=== PATIENT | male | born 1970 | race Caucasian/White ===

== ENCOUNTER 2016-08-23 10:45 | Inpatient (IN) | payer OTHER ==
[~2016-08-23] VITALS: Ht 175.3 cm; Wt 72.6 kg
--- NOTE | 2016-08-23 11:02 | NUR ---
PT SENT TO ED FOR ABNORMAL LABS. PT WENT TO [facility] [place] FOR PRE-OP CHECKUP AND LABS. PT HAD LABS DRAWN ON SAT AT [facility], PT WAS FOUND TO HAVE A POTASSIUM OF 6.5, GFR OF 8, AND AN EKG WITH PEAKED T'S, PER PA AT [facility]. PT WAS SCHEDULED FOR SURGERY ON 08/24 TO REPAIR HIS BROKEN ANKLE. PT HAS NO COMPLAINTS, NO C/P, DIFF BREATHING.
--- NOTE | 2016-08-23 11:28 | NUR ---
TRIAGE NOTE ACKNOWLEDGED AND RN CARE ASSUMED. PT BOUGHT TO ROOM # 19 AND EVALUATED BY MINNIE CAROLINA
[2016-08-23 11:47] LABS: ABSOLUTE BASOPHIL COUNT 0.1 /CUMM (0.0-0.2); ABSOLUTE EOSINOPHIL COUNT 0.1 /CUMM (0.0-0.7); ABSOLUTE GRANULOCYTE CT 4.9 /CUMM (1.4-6.5); ABSOLUTE LYMPH COUNT 1.3 /CUMM (1.2-3.4); ABSOLUTE MONOCYTE COUNT 0.4 /CUMM (0.10-0.60); EOSINOPHIL % 1.1 % (0-5); GRANULOCYTE % 73.3 % (42.2-75.2); HEMATOCRIT 21.2 % (42-52); MEAN CORPUSCULAR HGB 27.8 PG (27.0-31.0); MEAN CORPUSCULAR HGB CONC 32.9 G/DL (33.0-37.0); MEAN CORPUSCULAR VOLUME 84.5 FL (80.0-94.0); MEAN PLATELET VOLUME 7.6 FL (7.4-10.4); PLATELET COUNT 463 /CUMM (130-400); RBC DISTRIBUTION WIDTH 16.3 % (11.5-14.5); WHITE BLOOD CELL COUNT 6.7 /CUMM (4.8-10.8)
--- NOTE | 2016-08-23 12:07 | NUR ---
CRITICAL TEST RESULTS [id number] YI ROBB 46 M TESTS AND RESULTS: HGB 7.0, HCT 21.2 Results received and read back by: PRESLEY GLEZ Results received date and time: 08/23/16 1207 The following provider was notified of the results, and read the results back: MINNIE CAROLINA Notified date and time: 08/23/16 at 1206
--- NOTE | 2016-08-23 12:19 | ED GENERAL ADULT ---
History of Present Illness General Chief Complaint: General Adult Stated Complaint: SENT BY PMD FOR ABNORMAL LABS Source: patient, family Exam Limitations: no limitations Vital Signs & Intake/Output Vital Signs & Intake/Output Vital Signs Date Time Temp Pulse Resp B/P Pulse O2 O2 Flow FiO2 Ox Delivery Rate 08/23 2003 77 200/98 08/23 1920 98.2 85 20 200/98 100 Room Air 08/23 1832 198/90 08/23 1634 82 18 192/80 98 Room Air 08/23 1516 98.5 78 20 187/91 99 Room Air 08/23 1425 98.7 76 18 220/102 08/23 1419 76 18 220/102 98 Room Air 08/23 1357 98.7 78 18 225/108 02 1349 220/102 08/23 1348 98.7 78 18 225/108 100 Room Air 08/23 1320 99 Room Air 08/23 1058 98.9 79 20 209/93 100 Room Air Allergies Coded Allergies: No Known Allergies (08/23/16) Reconcile Medications No Known Home Medications Triage Note: PT SENT TO ED FOR ABNORMAL LABS. PT WENT TO [facility] IN [place] FOR PRE-OP CHECKUP AND LABS. PT HAD LABS DRAWN ON SAT AT [facility], PT WAS FOUND TO HAVE A POTASSIUM OF 6.5, GFR OF 8, AND AN EKG WITH PEAKED T'S, PER PA AT [facility]. PT WAS SCHEDULED FOR SURGERY ON 08/24 TO REPAIR HIS BROKEN ANKLE. PT HAS NO COMPLAINTS, NO C/P, DIFF BREATHING. Triage Nurses Notes Reviewed? yes Onset: Abrupt Duration: unknown duration Timing: recent history HPI: 46-year-old male that has a recent fracture in his left ankle is due to have surgery went to see his primary care doctor for a general physical and blood work which was preop and was told to come to the hospital due to abnormal values. Patient denies any symptoms. Patient denies any chest pain shortness of breath lightheaded dizziness syncopal episodes nausea vomiting fever chills. Patient has a splint in his left lower leg. Patient reports that he has not seen a doctor in many years. (HCAVA CAROLINA,MINNIE) Past History Travel History Traveled to [place] past 21 day No Medical History Any Pertinent Medical History? see below for history Cardiovascular: hypertension Tetanus Vaccine: Surgical History Surgical History: non-contributory Psychosocial History What is your primary language Jamaican Tobacco Use: Current Daily Use Daily Tobacco Use Amount/Type: => 5 Cigarettes daily ETOH Use: occasional use Illicit Drug Use: denies illicit drug use Family History Hx Contributory? No (MINNIE PURDY) Review of Systems Review of Systems Constitutional: Reports: no symptoms. EENTM: Reports: no symptoms. Respiratory: Reports: no symptoms. Cardiovascular: Reports: no symptoms. GI: Reports: no symptoms. Genitourinary: Reports: no symptoms. Musculoskeletal: Reports: see HPI. Skin: Reports: no symptoms. Neurological/Psychological: Reports: no symptoms. Hematologic/Endocrine: Reports: no symptoms. Immunologic/Allergic: Reports: no symptoms. All Other Systems: Reviewed and Negative (MINNIE PURDY) Physical Exam Physical Exam General Appearance: no apparent distress, alert, awake Head: atraumatic, normal appearance Eyes: Bilateral: normal appearance, EOMI. Ears, Nose, Throat: normal pharynx, normal ENT inspection Neck: normal inspection, full range of motion Respiratory: normal breath sounds, no respiratory distress Cardiovascular: regular rate/rhythm Back: normal inspection Extremities: splint in place of left lower extremity, no other acute findings Neurologic/Psych: awake, alert, oriented x 3 Skin: intact Core Measures ACS in differential dx? No CVA/TIA Diagnosis: No Severe Sepsis Present: No Septic Shock Present: No (MINNIE PURDY) Progress Differential Diagnoses I considered the following diagnoses in my evaluation of the patient: Renal failure, hyperkalemia, dehydration, chronic kidney disease, diabetes, hypertension, sepsis, Plan of Care: Orders Procedure Date/time Status PHOSPHORUS 08/24 0600 Active LIPID PANEL 08/24 0600 Active CBC WITHOUT DIFFERENTIAL 08/24 0600 Active BASIC ELECTROLYTES PLUS BUN&CR 08/24 0600 Active Heart Healthy Diet 08/23 D Active Vital Signs 08/23 193 Active Teach/Educate 08/23 1935 Active Nutritional Intake, Monitor 08/23 193 Active Isolation 08/23 193 Active Intake & Output 08/23 193 Active Patient Care Conference 08/23 193 Active Activity/Ambulation 08/23 1935 Active Lab Add-on Test 08/23 1551 Active TRC EVALUATION (GEN) 08/23 1524 Active OXYGEN SETUP (GEN) 08/23 1524 Active Pathway - chart 08/23 1524 Active House Staff 08/23 1524 Active Patient Data 08/23 1524 Active Code Status 08/23 1524 Active Admit to inpatient 08/23 1517 Active Vital Signs 08/23 1517 Active Code Status 08/23 1517 Complete TYPE & SCREEN (NOT X-MATCH) 08/23 1516 Complete Lab Add-on Test 08/23 1515 Active Patient Data 08/23 1456 Active URINE LYTES, SPOT 08/23 1415 Complete GLYCOSYLATED HGB 08/23 1141 Active Telemetry/Junior Net Developer 08/23 1133 Active URINALYSIS 08/23 1132 Complete PHOSPHORUS 08/23 1132 Complete MAGNESIUM 08/23 1132 Complete COMPREHENSIVE METABOLIC PANEL 08/23 1132 Complete CBC WITHOUT DIFFERENTIAL 08/23 1132 Complete EKG 08/23 1054 Active VTE Mechanical Prophylaxis 08/23 UNK Active Vital Signs 08/23 UNK Complete MISTAKE 08/23 UNK Active Telemetry/Junior Net Developer 08/23 UNK Active Intake & Output 08/23 UNK Active Hemoccult 08/23 UNK Active ECHOCARDIOGRAM 08/23 UNK Active Laboratory Tests 08/23/16 1415: Urinalysis LIGHT H, Urine Color YEL, Urine Clarity CLEAR, Urine pH 7.0, Ur Specific [place] 1.020, Urine Protein >=300 H, Urine Ketones NEG, Urine Nitrite NEG, Urine Bilirubin NEG, Urine Urobilinogen 0.2, Ur Leukocyte Esterase NEG, Ur Microscopic SEDIMENT EXAMINED, Urine RBC 1-3, Urine WBC 3-5 H, Urine Mucus RARE , Urine Hemoglobin SMALL H, Urine Glucose 100 H 08/23/16 1415: Ur Random Creatinine 46.1, Ur Random Sodium 91 H, Ur Random Potassium 33.7, Fraction Sodium Excret 9.5 H 08/23/16 1141: Hemoglobin A1c Pending 08/23/16 1141: Anion Gap 11, Estimated GFR 9 L, BUN/Creatinine Ratio 7.4, Glucose 88, Calcium 8.5, Phosphorus 6.5 H, Magnesium 2.0, Total Bilirubin 0.5, AST 18, ALT 23, Alkaline Phosphatase 88, Total Protein 6.7, Albumin 3.4 L, Globulin 3.3, Albumin/Globulin Ratio 1.0 L, CBC w Diff NO MAN DIFF REQ, RBC 2.50 L, MCV 84.5 , MCH 27.8, RDW 16.3 H, MPV 7.6, Gran % 73.3, Lymphocytes % 19.1 L, Monocytes % 5.5, Eosinophils % 1.1, Basophils % 1.0, Absolute Granulocytes 4.9, Absolute Lymphocytes 1.3, Absolute Monocytes 0.4, Absolute Eosinophils 0.1, Absolute Basophils 0.1, PUBS MCHC 32.9 L 08/23/16 1000: Ur Random Creatinine 50.3, U Random Total Protein 312.1 H, Protein/Creatinin Ratio 6.20 H Diagnostic Imaging: Viewed by Me: Ultrasound. Discussed w/RAD: Ultrasound. Radiology Impression: SERVICE DATE: 08/23/16-1231 EXAM TYPE: US - US-RENAL/ KIDNEY EXAMINATION: US RETROPERITONEAL COMPLETE (RENAL) CLINICAL INFORMATION: Renal failure. COMPARISON: None TECHNIQUE: Real-time imaging of the kidneys and bladder. FINDINGS: RIGHT KIDNEY: 12.3 x 6.1 x 5.6 cm (SAG x AP x TRV). Mildly increased cortical echogenicity. Renal cortical thickness is normal. No calculi or focal parenchymal lesions. No hydronephrosis. LEFT KIDNEY: 10.7 x 5.8 x 5.3 cm (SAG x AP x TRV). Increased cortical echogenicity. Mild cortical thinning. No evidence of stones or hydronephrosis. Hypoechoic cortical cyst mid left kidney measuring 1 x 0.7 cm. BLADDER: Well-distended and normal. Only right-sided ureteric jet identified during sonographic evaluation.. IMPRESSION: 1. Increased bilateral renal echogenicity compatible with underlying medical renal disease. 2. No evidence of stones or hydronephrosis. 3. Left renal cyst. Initial ED EKG: normal intervals, normal p-waves, normal sinus rhythm, rate (71) , nonspecific ST T wave chg, no hyperacute T waves (MINNIE PURDY) Departure Departure Disposition: STILL A PATIENT Condition: Stable Clinical Impression Primary Impression: Acute renal failure Secondary Impressions: Anemia, Hypertension Referrals: OMAR PLATA,NED (PCP/Family) Departure Forms: Customer Survey General Discharge Information Prescriptions: Current Visit Scripts No Known Home Medications Admission Note Spoke With: INDIRA ROMAN MD Documentation of Exam: Documentation of any treatments & extenuating circumstances including Concerns Regarding Discharge (functional status, medication knowledge or non-compliance, living conditions, etc.) that warrant an admission rather than observation: Patient will require renal consult. IV fluids. Blood pressure management. Repeat blood work. High risk. Patient would do poorly as an outpatient. Further evaluation for anemia. (MINNIE PURDY) Admission Note Documentation of Exam: Documentation of any treatments & extenuating circumstances including Concerns Regarding Discharge (functional status, medication knowledge or non-compliance, living conditions, etc.) that warrant an admission rather than observation: PA/COMBAT RIFLE CREWMEMBER Co-Sign Statement Statement: ED Attending supervision documentation- [x I saw and evaluated the patient. I have also reviewed all the pertinent lab results and diagnostic results. I agree with the findings and the plan of care as documented in the PA's/COMBAT RIFLE CREWMEMBER's documentation. [] I have reviewed the ED Record and agree with the PA's/COMBAT RIFLE CREWMEMBER's documentation. [] Additions or exceptions (if any) to the PAs/COMBAT RIFLE CREWMEMBER's note and plan are summarized below: [] I've seen and personally examined the patient and I agree with the PAs evaluation. The patient was found to have significant azotemia and elevated creatinine on routine physical exam. His blood pressure was substantially elevated. He is asymptomatic in the ED. He was admitted to the hospital for nephrology consult and further care. IV antihypertensive blood pressure reduction. (YI HOLLY DO) Critical Care Note Critical Care Note Critical Care Time: non-applicable (MINNIE PURDY)
--- NOTE | 2016-08-23 13:19 | NUR ---
pt sent to u/s
--- NOTE | 2016-08-23 14:05 | NUR ---
PT BACK FROM U/S. PT MEDICATED WITH 5 MG HYDRALAZINE IV FOR ELEVATED B/P.
--- NOTE | 2016-08-23 14:27 | NUR ---
B/P 220/102. PA NOTIFIED. PT MEDICATED WITH 10 MG HYDRALAZINE IV FOR ELEVATED B/P
--- NOTE | 2016-08-23 14:40 | ULTRASOUND REPORT ---
EXAMINATION: US RETROPERITONEAL COMPLETE (RENAL) CLINICAL INFORMATION: Renal failure. COMPARISON: None TECHNIQUE: Real-time imaging of the kidneys and bladder. FINDINGS: RIGHT KIDNEY: 12.3 x 6.1 x 5.6 cm (SAG x AP x TRV). Mildly increased cortical echogenicity. Renal cortical thickness is normal. No calculi or focal parenchymal lesions. No hydronephrosis. LEFT KIDNEY: 10.7 x 5.8 x 5.3 cm (SAG x AP x TRV). Increased cortical echogenicity. Mild cortical thinning. No evidence of stones or hydronephrosis. Hypoechoic cortical cyst mid left kidney measuring 1 x 0.7 cm. BLADDER: Well-distended and normal. Only right-sided ureteric jet identified during sonographic evaluation.. IMPRESSION: 1. Increased bilateral renal echogenicity compatible with underlying medical renal disease. 2. No evidence of stones or hydronephrosis. 3. Left renal cyst.
--- NOTE | 2016-08-23 15:05 | History & Physical ---
BENNETT PLATAEMRE 08/23/16 1505: General Information and HPI MD Statement: I have seen and personally examined YI ROBB and documented this H&P. The patient is a 46 year old M who presented with a patient stated chief complaint of [abnormal labs]. Source of Information: patient, family Exam Limitations: no limitations History of Present Illness: 46-year-old male with PMH of HTN was sent in for K6.5 and GFR8 with peaked T waves on EKG found on pre-op lab. Pt broke his left tibia and fibula when he slipped on the snow last . He got his blood work and EKG done on tuesday and tuesday, and was told today to come to the ED for abnormal lab findings. Pt reports that he has had hypertension for over 3 years, but has not been on medications, because he could not afford a doctor's visit. 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 When he was laid off from his previous job, he lost his insurance, and was told that he has to make an office visit prior to having his prescriptions renewed. Although he could afford his meds, he could not afford the office visits. He has not been checking his BP. ROS negative, except for pain on his left lower extremity due to the fall. He reported slipping on the ice, onto his ankle and back. Denies back pain. SH: Pt is an electrical wirer. Smokes [id number] years, refuses nicotine patch at this time. Ocassional alcohol (weekly), denies drugs. Allergies/Medications Allergies: Coded Allergies: No Known Allergies (08/23/16) Home Med list No Known Home Medications Past History Travel History Traveled to [place] past 21 day No Medical History Cardiovascular: hypertension Tetanus Vaccine: Surgical History Surgical History: non-contributory Past Family/Social History Psychosocial History Where do you live? Home Who Do You Live With? spouse Primary Language: Paraguayan Smoking Status: Current Everyday Smoker ([id number] years) ETOH Use: occasional use Illicit Drug Use: denies illicit drug use Functional Ability ADLs Independent: dressing, eating, toileting, bathing. Ambulation: independent IADLs Independent: shopping, housework, finances, food prep, telephone, transportation , medication admin. Employment History Employment Employed (electrical wirer) Review of Systems Review of Systems Constitutional: Reports: chills. Denies: fever. EENTM: Denies: visual changes. Cardiovascular: Denies: chest pain, palpitations. Respiratory: Denies: cough, short of breath. GI: Denies: abdominal pain, bloating, constipation, diarrhea. Genitourinary: Denies: dysuria. Exam & Diagnostic Data Last 24 Hrs of Vital Signs/I&O Vital Signs Date Time Temp Pulse Resp B/P Pulse O2 O2 Flow FiO2 Ox Delivery Rate 08/23 1634 82 18 192/80 98 Room Air 08/23 1516 98.5 78 20 187/91 99 Room Air 08/23 1425 98.7 76 18 220/102 08/23 1419 76 18 220/102 98 Room Air 08/23 1357 98.7 78 18 225/108 08/23 1349 220/102 08/23 1348 98.7 78 18 225/108 100 Room Air 08/23 1320 99 Room Air 08/23 1058 98.9 79 20 209/93 100 Room Air Intake & Output 08/23 1600 08/23 0800 08/23 0000 Intake Total 1000 Output Total Balance 1000 Intake, IV 1000 Patient 72.575 kg Weight Physical Exam General Appearance Alert, Oriented X3, Cooperative, No Acute Distress Skin left lower extremity wrapped HEENT Atraumatic, PERRLA, EOMI Neck Supple, +2 Carotid Pulse wo Bruit Lymphatic Axillary nl, Cervical nl Cardiovascular Regular Rate, Normal S1, Normal S2, No Murmurs, Gallops, Rubs Lungs Clear to Auscultation, Normal Air Movement Abdomen Normal Bowel Sounds, Soft, No Tenderness Neurological Normal Speech Extremities 2+ pitting edema bilaterally Diagnostic Data Other Results Renal US: 1. Increased bilateral renal echogenicity compatible with underlying medical renal disease. 2. No evidence of stones or hydronephrosis. 3. Left renal cyst. Assessment/Plan Assessment: 46-year-old male with PMH of HTN was sent in for K6.5 and GFR8 with peaked T waves on EKG found on pre-op lab. On admission, his labs were grossly abnormal with BUN/Cr of 51/6.9 (November 2010 was 19/1), H/H of 7/21.2 (November 2010 was 16.5/47.7 ). BP in the ED was up to 225/108, which improved to 187/91, a total of 15 mg IV hydralazine. Pt admitted to tele with the following problems addressed: # Acute renal failure # Hypertensive urgency # Left tibia and fibula fracture # Acute renal failure with anemia Renal US: Increased bilateral renal echogenicity compatible with underlying medical renal disease. - Urine cr 46.1 - Urine protein > 300 * Follow BEP, Phos * Follow spot urine creatinine * Nephrology consult placed * Follow H/H, goal hg > 7. Transfuse if < 7 * Guaiac all stool, iron studies * Follow lipid panel, hba1c # Hypertensive urgency - Goal BP < 190 for now * Start metoprolol 25 mg bid in the am # Left tibia and fibula fracture * Pain control with oxycodone * F/U with ortho at [facility] # Nicotine dependence * Counselled on cessation * Refused nicotine patch at this time Diet: Heart healthy DVT ppx: mech (no pharm due to anemia) FULL CODE As Ranked By This Provider Problem List: 1. Acute renal failure 2. Hypertension 3. Anemia Core Measures/Miscellaneous Acute Coronary Syndrome ACS Diagnosis: No Cerebrovascular Accident CVA/TIA Diagnosis: No Congestive Heart Failure CHF Diagnosis: No Venous Thromboembolism VTE Risk Factors: Acute medical illness, Age > 40 VTE Prophylaxis Ordered Inpt: Mechanical (ALPS/TEDS) No Mech VTE prophylaxis d/t: No contraindications No VTE Pharm Prophylaxis d/t: Active bleeding VTE Diagnosis: No VTE Type: NONE VTE Confirmed by (Test): NONE Severe Sepsis Severe Sepsis Present: No Septic Shock Septic Shock Present: No Miscellaneous Documentation Attending Case Discussed With: GAYLE FREIRE M.D Primary Care Physician: OMAR PLATA,UJJWAL Patient sees these Specialists None Level of Patient Care: Telemetry MARY SHERWOOD 08/23/16 1508: Resident Review Statement Resident Statement: examined this patient, discussed with grad intern, agreed with grad intern, discussed with family, reviewed EMR data (avail), discussed with nursing , reviewed images Other Findings: This is a 46 YO M W/O significant PMH(did not follow up with any doctor for years) was sent to the ED from clinic for abnormal labs. He is s/p Left tibia/ fibula Fx and was there for pre-op evaluation. Pt reports no specific complaint except pain in LE and occasional LE edema which has been worsening for the past few months. Please see above for more details. VS: BP 225/108 otherwise stable. Ph/Ex: AAO x3, NAD, HEENT: NCAT, PERRLA, EOMI, NL Fundoscopy, Neck: supple, no JVD, or carotid bruits. No LAD. CV: RRR no murmur, Lungs: CTABL, Abd: NL BS, Soft, NT, ND. Neurology: CN 3-12 intact, sensation intact. Ext: Pulse intact, LLE dressing intact, LE edema b/l Labs and Dx Data reviewed: Problem list: * VIKRAM: Cr: 6.9, GFR: 9 (Last available data: November 2010: Cr 1, GFR NL): FENA 9.5%, nephritic range of proteinuria. Obstructive uropathy was r/o w/renal US. DDX: ATN/AIN vs CKD * Hypertensive emergency: BP 225/108 w/ end-organ damage(VIKRAM) * Left renal cyst * Left tibia and fibula Fx * Pre-DM * Hyper phos Plan: * Tele monitor * Vitals q shift * Orthostatics * Hemoccult * TSH, Iron studies, lipid panel * Nephro consult * Monitor H&H * type&screen transfuse if Hb<7 * BP improved to 180/90 after receiving IV hydralazine in the ED * Would not decrease BP more than 20-30 sys within 24 hrs therefore would start antihypertensives(preference with BBs) from tomorrow unless sys BP rises above 190. * Nephro consult * Adequate pain management as it can contribute to elevated BP. * Life style mod/nutrition counseling for pre DM. * DVT PPX * FC MOUNA PLATA,[facility] 08/23/16 1557: Attending MD Review Statement Attending Statement Attending MD Statement: examined this patient, discuss w/resident/PA/CORE MANAGER, agreed w/resident/PA/CORE MANAGER, discussed with family, reviewed EMR data (avail), discussed with nursing, amended to note Attending Assessment/Plan: Patient is a 38-year-old male with history of hypertension. He has not seen a primary care provider in several years. He stopped taking antihypertensive medications a few years ago when his primary care provider refused to fill medications without a formal office visit. He sustained a left tibia-fibula fracture. He to go following a mechanical fall while in [place]. Temporary mobilizer was placed and he has since followed up with an orthopedic service and is due for surgical intervention. He was referred to the ER when preop blood work showed evidence of renal disease and hyperkalemia. Patient offers no complaints. Denies dyspnea, cough, poor exercise tolerance, chest pain or palpitations. On examination he is not in any acute distress. He has mild conjunctival pallor. He has no uvular venous distention. Heart sounds are regular with no added sounds. Lungs are clear to auscultation bilaterally. Abdomen is soft and nondistended. Left leg is immobilized in a cast. Right leg has 2+ pitting pedal edema. Patient reports that this is chronic. Problems: 1. Hypertensive crisis 2. Renal failure; unknown chronicity. 3. Anemia 4. Left tibia-fibula fracture. Recommendations: -Admit to the inpatient service for further management. -Patient's paucity of symptoms are suggested that his renal dysfunction, anemia and uncontrolled hypertension chronic. -Blood pressure has improved with administration of hydralazine 15 mg in the emergency room. Begin patient on metoprolol 25 mg orally twice daily. We'll titrate and Giuliano on antihypertensives as needed. We will tolerate blood pressure of less than 190 systolic in the next 24-48 hours. -He has significant proteinuria on spot urine analysis. Recommend obtaining urine protein/creatinine level. His random glucose level is not suggestive of diabetes making diabetic nephropathy less likely on the differentials. He may require renal biopsy for definitive diagnosis.. Monitor input output closely and follow-up with the nephrology service. His potassium level is currently within normal limits and he is not significantly acidotic. -Check stool guaiac and iron profile. His anemia may be secondary to chronic kidney disease. Repeat H&H. Hold off transfusion as patient is currently not symptomatic. Transfuse to keep hemoglobin level greater than 7 and hematocrit greater than 21 -Continue leg immobilization. Patient will follow-up with his orthopedic service as an outpatient for surgical intervention. -Check stool guaiac before beginning DVT prophylaxis with subcutaneous heparin. -Patient will be monitored on the telemetry service for the next 24 hours as he may require intravenous medications for blood pressure control. Once blood pressure is consistently below 190 systolic he may be transferred to the general medical service.
--- NOTE | 2016-08-23 15:43 | NUR ---
PT ADMITTED TO ROOM 174-2
--- NOTE | 2016-08-23 18:00 | NUR ---
DINNER TRAY ORDERED.
--- NOTE | 2016-08-23 18:44 | NUR ---
PT ADMITTED TO ROOM # 174-2. ORAL REPORT GIVEN TO SHAWN MEZA ALL V.S.S. B/P 198/90 MANUALLY. MOD CALLED AND NOTIFIED. NO ORDERS RECEIVED. RESIDENT DOES NOT WANT TO GIVE ANY MEDS FOR B/P AT THIS TIME. METOPROLOL 25 MG ORDERED BID. PT READY FOR TRANSFER
--- NOTE | 2016-08-23 19:05 | NUR ---
PT MEDICATED WITH 5 MG OXYCODONE PO FOR 7/10 LEFT FOOT PAIN DISTRIBUTION CALLED TO TRANSFER PT
[2016-08-23 19:20] VITALS: BP 200/98
[2016-08-23 21:45] VITALS: BP 180/88
--- NOTE | 2016-08-23 21:50 | NUR ---
MD TORO PERFORMED DIGITAL GUIAC EXAM AND RESULT WAS NEGATIVE.
[2016-08-23 22:54] LABS: ABSOLUTE BASOPHIL COUNT 0.1 /CUMM (0.0-0.2); ABSOLUTE EOSINOPHIL COUNT 0.1 /CUMM (0.0-0.7); ABSOLUTE GRANULOCYTE CT 4.9 /CUMM (1.4-6.5); ABSOLUTE LYMPH COUNT 1.2 /CUMM (1.2-3.4); ABSOLUTE MONOCYTE COUNT 0.3 /CUMM (0.10-0.60); MEAN CORPUSCULAR VOLUME 85.3 FL (80.0-94.0); MEAN PLATELET VOLUME 8.1 FL (7.4-10.4)
[2016-08-23 22:56] LABS: BASOPHIL % 0.8 % (0.0-2.0); EOSINOPHIL % 0.8 % (0-5); GRANULOCYTE % 74.6 % (42.2-75.2); MEAN CORPUSCULAR HGB CONC 32.8 G/DL (33.0-37.0); PLATELET COUNT 391 /CUMM (130-400); RED BLOOD CELL CT 2.29 /CUMM (4.70-6.10); WHITE BLOOD CELL COUNT 6.6 /CUMM (4.8-10.8)
[2016-08-23 22:59] LABS: HEMATOCRIT 19.6 % (42-52)
[2016-08-24 00:30] VITALS: BP 162/80
[2016-08-24 03:59] VITALS: BP 180/80
--- NOTE | 2016-08-24 06:34 | PN- Housestaff ---
BENNETT PLATA,EMRE 08/24/16 0633: Subjective Follow-up For: hypertensive urgency renal failure ankle fracture Tele-Events Since Last Visit: SR 60-64 no events Subjective: Pt was seen and examined this morning. Reported not getting much sleep due to repeat bloodworks/vitals/ekg. Other than that, no complains. BP continues to be high, although improved, with range 162-200 / 80-92. We have added lasix 80 po daily and amlodipine 5 mg daily. We will get ortho consult. Nephro recommends doing the surgical repair while he is inpatient so that we can closely monitor him post - op. Review of Systems Constitutional: Denies: chills, fever. EENTM: Denies: visual changes. Cardiovascular: Denies: chest pain. Respiratory: Denies: cough, short of breath. Gastrointestinal: Denies: abdominal pain. Objective Last 24 Hrs of Vital Signs/I&O Vital Signs Date Time Temp Pulse Resp B/P Pulse O2 O2 Flow FiO2 Ox Delivery Rate 08/24 1318 180/78 08/24 0849 192/82 08/24 0833 99.3 63 16 191/92 98 Room Air 08/24 0359 67 180/80 08/24 0317 61 200/90 08/24 0030 97.7 63 20 162/80 97 Room Air 08/23 2200 99 Room Air 08/23 2145 69 180/88 08/23 2004 77 200/98 08/23 1920 98.2 85 20 200/98 100 Room Air 08/23 1832 198/90 08/23 1634 82 18 192/80 98 Room Air 08/23 1516 98.5 78 20 187/91 99 Room Air 08/23 1425 98.7 76 18 220/102 08/23 1419 76 18 220/102 98 Room Air Intake & Output 08/24 1600 08/24 0800 08/24 0000 Intake Total 750 300 Output Total 450 300 Balance 300 0 Intake, Blood 350 Product Intake, Oral 400 300 Output, Urine 450 300 Patient 72.575 kg Weight Physical Exam General Appearance: Alert, Oriented X3, Cooperative, No Acute Distress Skin: No Significant Lesion HEENT: Atraumatic Cardiovascular: Regular Rate, Normal S1, Normal S2, No Murmurs, Gallops, Rubs Lungs: Clear to Auscultation, Normal Air Movement Abdomen: Normal Bowel Sounds, Soft, No Tenderness Neurological: Normal Speech Extremities: bilateral pitting edema Current Medications: Current Medications Sig/Alban Start time Last Medication Dose Route Stop Time Status Admin Amlodipine Besylate 5 MG DAILY 08/24 1115 AC 08/24 PO 1318 Furosemide 80 MG DAILY 08/24 1110 AC 08/24 PO 1319 Hydralazine HCl 10 MG ONCE ONE 08/23 1415 DC 08/23 IV 08/23 1416 1425 Labetalol HCl 5 MG ONCE ONE 08/24 0315 DC 08/24 IV 08/24 0316 0317 Metoprolol Tartrate 25 MG BID 08/23 2200 08/24 PO 0849 Oxycodone HCl 0 .STK-MED ONE 08/23 1901 DC PO Oxycodone HCl 5 MG Q6P PRN 08/23 1715 AC 08/24 PO 0851 Patient Medication 1 ED .STK-MED ONE 08/24 1413 DC Teaching ED 08/24 1414 Sodium Chloride 1,000 ML ONCE ONE 08/23 1245 DC 08/23 IV 08/23 1924 1425 Last 24 Hrs of Lab/Quinn Results Last 24 Hrs of Labs/Mics: Laboratory Tests 08/24/16 0555: Anion Gap 10, Estimated GFR 9 L, BUN/Creatinine Ratio 6.8 L, Phosphorus 6.5 H , Triglycerides 137, Cholesterol 155, LDL Cholesterol, Calc 98, HDL Cholesterol 30 L, Cholesterol/HDL Ratio 5 H, CBC w Diff NO MAN DIFF REQ, RBC 2.58 L, MCV 85.4, MCH 28.8, RDW 15.5 H, MPV 8.5, Gran % 69.6, Lymphocytes % 23.4, Monocytes % 4.6, Eosinophils % 1.2, Basophils % 1.2, Absolute Granulocytes 4.0, Absolute Lymphocytes 1.3, Absolute Monocytes 0.3, Absolute Eosinophils 0.1, Absolute Basophils 0.1, PUBS MCHC 33.8 08/24/16 0115: Estimated GFR 9 L, Iron 22 L, TIBC 288, Ferritin 31.3, Troponin I 0.78 *H, 25- OH Vitamin D Total 8.0 L, Hepatitis A IgM Ab NONREACTIVE, Hep Bs Antigen NONREACTIVE, Hep B Core IgM Ab Conf NONREACTIVE, Hepatitis C Antibody NONREACTIVE 08/24/16 0014: SHAWN Titer Pending, Anti-Nuclear Antibody Pending 08/23/162207: CBC w Diff NO MAN DIFF REQ, RBC 2.29 L, MCV 85.3, MCH 28.0, RDW 16.0 H, MPV 8.1, Gran % 74.6, Lymphocytes % 18.7 L, Monocytes % 5.1, Eosinophils % 0.8, Basophils % 0.8, Absolute Granulocytes 4.9, Absolute Lymphocytes 1.2, Absolute Monocytes 0.3, Absolute Eosinophils 0.1, Absolute Basophils 0.1, PUBS MCHC 32.8 L Assessment/Plan Assessment: 46-year-old male with PMH of HTN was sent in for K6.5 and GFR8 with peaked T waves on EKG found on pre-op lab. On admission, his labs were grossly abnormal with BUN/Cr of 51/6.9 (November 2010 was 19/1), H/H of 7/21.2 (November 2010 was 16.5/47.7 ). BP in the ED was up to 225/108, which improved to 187/91, a total of 15 mg IV hydralazine. Pt admitted to [facility] with the following problems addressed: # Acute renal failure # Anemia # Hypertensive urgency # Positive troponin # Left tibia and fibula fracture # Acute renal failure Renal US: Increased bilateral renal echogenicity compatible with underlying medical renal disease. - BUN/Cr: 51/6.9 - Urine cr 46.1 - Fena 9.5% - Urine protein > 300 - Phos 6.5 - Bilateral pitting edema * Follow BEP, Phos * Nephrology consult placed * Follow lipid panel, hba1c * Follow SIEP, Serum free light chains, SHAWN, C3, C4, ANCA, * Hep B & C serologies negative * Lasix 80 mg po qday * LE doppler to r/o Dvt * OP f/u with GFP # Anemia - Stool guaiac done and was negative - Hg 7.0 --> 6.4 --> Received 1 unit PRBC --> hg 7.4 * Monitor CBC. goal hg > 7. Transfuse if < 7 * Guaiac all stool, iron studies # Hypertensive urgency - Goal BP < 190 for now * Start metoprolol 25 mg bid, amlodipine 10 mg daily # Positive troponin most likely demand ischemia from hypertension vs renal failure - Echo Aug 2016: Moderate to marked concentric left ventricular hypertrophy. Normal left ventricular ejection fraction visually estimated at >65. Normal left ventricular diastolic filling pattern for age. Mild to moderate left atrial dilatation. Mild thickening/calcification of the mitral valve leaflets. Mild mitral annular calcification. Trace mitral regurgitation. Focal thickening of the aortic valve cusps. No aortic stenosis. Pulmonary artery systolic pressure is elevated at 45-50 mm Hg. Dilated IVC. * Cardiology consulted: Dr. Quan * Trop 1.03 --. 0.78 # Left tibia and fibula fracture * Pain control with oxycodone (can inc oxycodone to 10 mg if pain not well controlled) * Ortho consulted: nephro recc doing surgery while he is inpatient so that we can monitor him closely postoop * Follow ankle xray # Nicotine dependence * Counselled on cessation * Refused nicotine patch at this time Diet: Heart healthy : 2 gram Na & K diet DVT ppx: mech (no pharm due to anemia) FULL CODE Problem List: 1. Hypertensive urgency 2. Renal failure 3. Elevated troponin 4. Anemia 5. Ankle fracture Pain Ratin Pain Location: ankle Pain Goal: Remain pain free Pain Plan: oxycodone Tomorrow's Labs & Rationales: bep , mg, phos for renal failure cbc for anemia DVT/Prophylaxis: mechanical MOUNA PLATA,GAYLE 08/24/16 1602: Attending MD Review Statement Attending Statement Attending MD Statement: examined this patient, discuss w/resident/PA/OUTDOOR GUIDE, agreed w/resident/PA/OUTDOOR GUIDE, reviewed EMR data (avail), discussed with nursing, discussed with case mgmt, amended to note Attending Assessment/Plan: Patient seen and examined. Resting comfortably not in acute distress. Blood pressure is better controlled but still elevated. Denies chest pain or shortness of breath. Denies palpitations. Troponins were noted to be yesterday but are currently trending downwards. Recommendations: -Administer another dose of amlodipine 5 mg orally this afternoon. Increase dose of amlodipine to 10 mg daily. Continue metoprolol at current dose and diuretic therapy as recommended by the nephrology service. -Serologic workup as recommended by the nephrology service has been ordered. Will follow-up results. -Please refer patient to outpatient primary care practice at [facility]. -orthopedic evaluation appreciated. Patient will continue care as an outpatient with his private orthopedic surgeons. -Echocardiogram shows normal ejection fraction, dilated inferior vena cava and elevated pulmonary pressures. He is not short of breath. He is not hypoxic. -Obtain Dopplers of lower extremity to rule out DVT in view of his lower extremity swelling. Swelling may be due to protein loss from his nephrotic syndrome.
[2016-08-24 07:49] LABS: ABSOLUTE BASOPHIL COUNT 0.1 /CUMM (0.0-0.2); ABSOLUTE EOSINOPHIL COUNT 0.1 /CUMM (0.0-0.7); ABSOLUTE LYMPH COUNT 1.3 /CUMM (1.2-3.4); ABSOLUTE MONOCYTE COUNT 0.3 /CUMM (0.10-0.60); BASOPHIL % 1.2 % (0.0-2.0); EOSINOPHIL % 1.2 % (0-5); GRANULOCYTE % 69.6 % (42.2-75.2); HEMATOCRIT 22.1 % (42-52); MEAN CORPUSCULAR HGB 28.8 PG (27.0-31.0); MEAN CORPUSCULAR HGB CONC 33.8 G/DL (33.0-37.0); MEAN CORPUSCULAR VOLUME 85.4 FL (80.0-94.0); MEAN PLATELET VOLUME 8.5 FL (7.4-10.4); PLATELET COUNT 372 /CUMM (130-400); RBC DISTRIBUTION WIDTH 15.5 % (11.5-14.5); RED BLOOD CELL CT 2.58 /CUMM (4.70-6.10); WHITE BLOOD CELL COUNT 5.7 /CUMM (4.8-10.8)
[2016-08-24 08:33] VITALS: BP 191/92
--- NOTE | 2016-08-24 09:39 | Cons- Nephrology ---
General Information and HPI Consulting Request Date of Consult: 08/24/16 Requested By: GAYLE FREIRE M.D Reason for Consult: RENAL FAILURE Source of Information: patient, old records Exam Limitations: no limitations History of Present Illness: 46 yr old WM w known DM & HTN noncompliant w meds & f/u admit yesterday after labs pre anticipated surgical L ankle fx repair showed elevated BUN/Cr 51/6.9 & K. Found to have accelerated HTN BP 225/108 as well & begun on labetalol & hydralazine. Has not had labs for many yrs but denies previous renal failure or abnormal u/a. Distant hx nephrolithiasis but w/o any recent renal colic. No NSAIDs, ACEI, or ARBs. No IV contrast. Recently told has ? retinopathy but no laser or other Rx. No uremic sx. No collagen vasc sx. FHx notable for father w DM,HTN, & ESRD requiring HD & transplant prior to expiring. Allergies/Medications Allergies: Coded Allergies: No Known Allergies (08/23/16) Home Med List: No Known Home Medications Current Medications: Current Medications Sig/Alban Start time Last Medication Dose Route Stop Time Status Admin Hydralazine HCl 10 MG ONCE ONE 08/23 1415 DC 08/23 IV 08/23 1416 1425 Hydralazine HCl 5 MG ONCE ONE 08/23 1400 DC 08/23 IV 08/23 1401 1357 Hydralazine HCl 0 .STK-MED ONE 08/23 1356 DC .ROUTE Labetalol HCl 5 MG ONCE ONE 08/24 0315 DC 08/24 IV 08/24 0316 0317 Metoprolol Tartrate 25 MG BID 08/23 2200 AC 08/24 PO 0849 Oxycodone HCl 0 .STK-MED ONE 08/23 1901 DC PO Oxycodone HCl 5 MG Q6P PRN 08/23 1715 AC 08/24 PO 0851 Sodium Chloride 1,000 ML ONCE ONE 08/23 1245 DC 08/23 IV 08/23 1924 1425 Sodium Chloride 1,000 ML BOLUS ONE 08/23 1245 DC 08/23 IV 08/23 1344 1319 Review of Systems Review of Systems Constitutional: Reports: no symptoms. EENTM: Reports: no symptoms. Cardiovascular: Reports: no symptoms. Respiratory: Reports: no symptoms. GI: Reports: no symptoms. Genitourinary: Reports: no symptoms. Skin: Reports: no symptoms. Neurological/Psychological: Reports: no symptoms. Hematologic/Endocrine: Reports: no symptoms. Immunologic/Allergic: Reports: no symptoms. All Other Systems: Reviewed and Negative Past History Travel History Traveled to [place] past 21 day No Medical History Blood Transfusion Hx: No Cardiovascular: hypertension Endocrine: diabetes Surgical History Surgical History: non-contributory Family History Relations & Conditions If Any: FATHER Relation not specified for: Diabetes mellitus in father FH: diabetes mellitus FH: kidney failure Hypertension in father Psychosocial History Where Do You Live? Home Who Do You Live With? spouse Services at Home: None Primary Language: Tuvaluan Smoking Status: Current Everyday Smoker (8mgcP93 years) ETOH Use: occasional use Illicit Drug Use: denies illicit drug use Functional Ability ADLs Independent: dressing, eating, toileting, bathing. Ambulation: independent IADLs Independent: shopping, housework, finances, food prep, telephone, transportation , medication admin. 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7 78 18 225/108 100 Room Air 08/23 1320 99 Room Air 08/23 1058 98.9 79 20 209/93 100 Room Air Intake & Output 08/24 1600 08/24 0400 08/23 1600 08/23 0400 08/22 1600 08/22 0400 Intake Total 172 559 0002 Output Total 450 300 650 Balance 300 0 350 Intake, Blood 350 Product Intake, IV 1000 Intake, Oral 400 300 Output, Urine 450 300 650 Patient 160 lb 160 lb Weight Physical Exam General Appearance: well developed/nourished, no apparent distress, alert Head: atraumatic, normal appearance Eyes: Bilateral: normal appearance. 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 nml as tested Skin: intact, normal color, warm/dry Lymphatic: no anterior cervical ana maria Results Pertinent Lab Results: Laboratory Tests 08/24 08/24 0555 0115 Chemistry Sodium (137 - 145 mmol/L) 141 Potassium (3.5 - 5.1 mmol/L) 5.3 H Chloride (98 - 107 mmol/L) 112 H Carbon Dioxide (22 - 30 mmol/L) 20 L Anion Gap (5 - 16) 10 BUN (9 - 20 mg/dL) 45 H 47 H Creatinine (0.7 - 1.2 mg/dL) 6.6 *H 6.5 *H Estimated GFR (>60 ml/min) 9 L 9 L BUN/Creatinine Ratio (7 - 25 %) 6.8 L Phosphorus (2.5 - 4.5 mg/dL) 6.5 H Troponin I (<0.11 ng/ml) 0.78 *H Triglycerides (<150 mg/dL) 137 Cholesterol (< 200 MG/DL) 155 LDL Cholesterol, Calc (65 - 129 mg/dL) 98 HDL Cholesterol (40 - 60 mg/dL) 30 L Cholesterol/HDL Ratio (0.00 - 4.88 %) 5 H 25-OH Vitamin D Total (30 - 100 ng/ml) 8.0 L Hematology CBC w Diff NO MAN DIFF REQ WBC (4.8 - 10.8 /CUMM) 5.7 RBC (4.70 - 6.10 /CUMM) 2.58 L Hgb (14.0 - 18.0 G/DL) 7.4 *L Hct (42 - 52 %) 22.1 L MCV (80.0 - 94.0 FL) 85.4 MCH (27.0 - 31.0 PG) 28.8 RDW (11.5 - 14.5 %) 15.5 H Plt Count (130 - 400 /CUMM) 372 MPV (7.4 - 10.4 FL) 8.5 Gran % (42.2 - 75.2 %) 69.6 Lymphocytes % (20.5 - 51.1 %) 23.4 Monocytes % (1.7 - 9.3 %) 4.6 Eosinophils % (0 - 5 %) 1.2 Basophils % (0.0 - 2.0 %) 1.2 Absolute Granulocytes (1.4 - 6.5 /CUMM) 4.0 Absolute Lymphocytes (1.2 - 3.4 /CUMM) 1.3 Absolute Monocytes (0.10 - 0.60 /CUMM) 0.3 Absolute Eosinophils (0.0 - 0.7 /CUMM) 0.1 Absolute Basophils (0.0 - 0.2 /CUMM) 0.1 PUBS MCHC (33.0 - 37.0 G/DL) 33.8 08/23 08/23 2208 1415 Hematology CBC w Diff NO MAN DIFF REQ WBC (4.8 - 10.8 /CUMM) 6.6 RBC (4.70 - 6.10 /CUMM) 2.29 L Hgb (14.0 - 18.0 G/DL) 6.4 *L Hct (42 - 52 %) 19.6 *L MCV (80.0 - 94.0 FL) 85.3 MCH (27.0 - 31.0 PG) 28.0 RDW (11.5 - 14.5 %) 16.0 H Plt Count (130 - 400 /CUMM) 391 MPV (7.4 - 10.4 FL) 8.1 Gran % (42.2 - 75.2 %) 74.6 Lymphocytes % (20.5 - 51.1 %) 18.7 L Monocytes % (1.7 - 9.3 %) 5.1 Eosinophils % (0 - 5 %) 0.8 Basophils % (0.0 - 2.0 %) 0.8 Absolute Granulocytes (1.4 - 6.5 /CUMM) 4.9 Absolute Lymphocytes (1.2 - 3.4 /CUMM) 1.2 Absolute Monocytes (0.10 - 0.60 /CUMM) 0.3 Absolute Eosinophils (0.0 - 0.7 /CUMM) 0.1 Absolute Basophils (0.0 - 0.2 /CUMM) 0.1 PUBS MCHC (33.0 - 37.0 G/DL) 32.8 L Urines Urinalysis LIGHT H Urine Color (YEL,AMB,STR) YEL Urine Clarity (CLEAR) CLEAR Urine pH (5.0 - 8.0) 7.0 Ur Specific [place] (1.001 - 1.035) 1.020 Urine Protein (NEG,<30 MG/DL) >=300 H Urine Ketones (NEG) NEG Urine Nitrite (NEG) NEG Urine Bilirubin (NEG) NEG Urine Urobilinogen (0.1 - 1.0 EU/dl) 0.2 Ur Leukocyte Esterase (NEG) NEG Ur Microscopic SEDIMENT EXAMINED Urine RBC (0 - 5 /HPF) 1-3 Urine WBC (0 - 2 /HPF) 3-5 H Urine Mucus (FEW,NONE) RARE Urine Hemoglobin (NEG) SMALL H Urine Glucose (N MG/DL) 100 H 08/23 08/23 08/23 1415 1141 1141 Chemistry Sodium (137 - 145 mmol/L) 143 Potassium (3.5 - 5.1 mmol/L) 5.0 Chloride (98 - 107 mmol/L) 111 H Carbon Dioxide (22 - 30 mmol/L) 21 L Anion Gap (5 - 16) 11 BUN (9 - 20 mg/dL) 51 H Creatinine (0.7 - 1.2 mg/dL) 6.9 *H Estimated GFR (>60 ml/min) 9 L BUN/Creatinine Ratio (7 - 25 %) 7.4 Glucose (65 - 99 mg/dL) 88 Hemoglobin A1c Pending Calcium (8.4 - 10.2 mg/dL) 8.5 Phosphorus (2.5 - 4.5 mg/dL) 6.5 H Magnesium (1.6 - 2.3 mg/dL) 2.0 Total Bilirubin (0.2 - 1.3 mg/dL) 0.5 AST (17 - 59 U/L) 18 ALT (21 - 72 U/L) 23 Alkaline Phosphatase (< 127 U/L) 88 Troponin I (<0.11 ng/ml) 1.03 *H Total Protein (6.3 - 8.2 g/dL) 6.7 Albumin (3.5 - 5.0 g/dL) 3.4 L Globulin (1.9 - 4.2 gm/dL) 3.3 Albumin/Globulin Ratio (1.1 - 2.2 %) 1.0 L Hematology CBC w Diff NO MAN DIFF REQ WBC (4.8 - 10.8 /CUMM) 6.7 RBC (4.70 - 6.10 /CUMM) 2.50 L Hgb (14.0 - 18.0 G/DL) 7.0 *L Hct (42 - 52 %) 21.2 L MCV (80.0 - 94.0 FL) 84.5 MCH (27.0 - 31.0 PG) 27.8 RDW (11.5 - 14.5 %) 16.3 H Plt Count (130 - 400 /CUMM) 463 H MPV (7.4 - 10.4 FL) 7.6 Gran % (42.2 - 75.2 %) 73.3 Lymphocytes % (20.5 - 51.1 %) 19.1 L Monocytes % (1.7 - 9.3 %) 5.5 Eosinophils % (0 - 5 %) 1.1 Basophils % (0.0 - 2.0 %) 1.0 Absolute Granulocytes (1.4 - 6.5 /CUMM) 4.9 Absolute Lymphocytes (1.2 - 3.4 /CUMM) 1.3 Absolute Monocytes (0.10 - 0.60 /CUMM) 0.4 Absolute Eosinophils (0.0 - 0.7 /CUMM) 0.1 Absolute Basophils (0.0 - 0.2 /CUMM) 0.1 PUBS MCHC (33.0 - 37.0 G/DL) 32.9 L Urines Ur Random Creatinine (mg/dL) 46.1 Ur Random Sodium (30 - 90 mmol/L) 91 H Ur Random Potassium (mmol/L) 33.7 Fraction Sodium Excret (<1% %) 9.5 H 02/20 UNK Urines Ur Random Creatinine (mg/dL) 50.3 U Random Total Protein (0 - 12 mg/dL) 312.1 H Protein/Creatinin Ratio (< 0.2) 6.20 H Imaging/Other Studies: Renal US: RIGHT KIDNEY: 12.3 x 6.1 x 5.6 cm (SAG x AP x TRV). Mildly increased cortical echogenicity. Renal cortical thickness is normal. No calculi or focal parenchymal lesions. No hydronephrosis. LEFT KIDNEY: 10.7 x 5.8 x 5.3 cm (SAG x AP x TRV). Increased cortical echogenicity. Mild cortical thinning. No evidence of stones or hydronephrosis. Hypoechoic cortical cyst mid left kidney measuring 1 x 0.7 cm. BLADDER: Well-distended and normal. Only right-sided ureteric jet identified during sonographic evaluation.. IMPRESSION: 1. Increased bilateral renal echogenicity compatible with underlying medical renal disease. 2. No evidence of stones or hydronephrosis. 3. Left renal cyst. Assessment/Plan Assessment/Recommendations Assessment: 1. Renal failure: suspect chronic, stage 5, likely due to diabetic & HTN nephrosclerosis. Can't exclude other glomerular dx or more acute course --> needs serologic evaluation & possible bx depending on results. At present time, no renal replacement/dialysis indication. At higher risk for periop complication w ortho surg, including VIKRAM, but no overt contraindication once BP controlled. 2. HTN: uncontrolled; needs diuretic added w edema but given mild hyperkalemia, avoid RAAS interrruption. No objection to Ca channel tejal. 3. Anemia: likely due to CKD but needs paraprotein & Fe stores checked before adding HAIDER. Recommendations: 1. Lasix 80 mg po qday 2. 2 gram Na & K diet 3. SIEP 4. Serum free light chains 5. SHAWN, C3, C4 6. ANCA 7. Hep B & C serologies 8. Fe, TIBC, ferritin
--- NOTE | 2016-08-24 13:04 | ECHOCARDIOGRAM REPORT ---
YI ROBB Age: 46 : 1970 Gender: M Exam Date: 08/24/2016 10:31 Exam Location: 1 [address] Ht (in): 69 Wt (lb): 160 BSA: 1.88 BP: 180 / 80 Ordering Physician: DEBORA ALEXANDRA MD Referring Physician: DEBORA ALEXANDRA MD Technologist: Denis [facility] Room Number: 174-2 Indications: Chest Pain Rhythm: Sinus Technical Quality: Good FINDINGS Left Ventricle Normal size left ventricle. Moderate to marked concentric left ventricular hypertrophy. Normal left ventricular ejection fraction visually estimated at >65 %. No obvious regional wall motion abnormalities. Normal left ventricular diastolic filling pattern for age. Right Ventricle The right ventricle is normal in size and function. Right Atrium The right atrium is normal in size. Left Atrium Mild to moderate left atrial dilatation. Mitral Valve Mild thickening/calcification of the mitral valve leaflets. Mild mitral annular calcification. Trace mitral regurgitation. Aortic Valve Focal thickening of the aortic valve cusps. No aortic stenosis. No aortic regurgitation. Tricuspid Valve The tricuspid valve is normal in structure and function. There is trace tricuspid regurgitation. Pulmonary artery systolic pressure is elevated at 45-50 mm Hg. Pulmonic Valve Pulmonic valve not well visualized, grossly normal. Trace pulmonic regurgitation. Pericardium Normal pericardium without effusion. No pleural effusion. Great Vessels Dilated IVC. Normal size aortic root. CONCLUSIONS Moderate to marked concentric left ventricular hypertrophy. Normal left ventricular ejection fraction visually estimated at >65 Normal left ventricular diastolic filling pattern for age. Mild to moderate left atrial dilatation. Mild thickening/calcification of the mitral valve leaflets. Mild mitral annular calcification. Trace mitral regurgitation. Focal thickening of the aortic valve cusps. No aortic stenosis. Pulmonary artery systolic pressure is elevated at 45-50 mm Hg. Dilated IVC. Waqas Dumont M.D. (Electronically Signed) Final Date: 24 August 2016 13:03 MEASUREMENTS (Male / Female) Normal Values 2D ECHO LV Diastolic Diameter PLAX 5.3 cm 4.2 - 5.9 / 3.9 - 5.3 cm LV Systolic Diameter PLAX 3.9 cm 2.1 - 4.0 cm LV Fractional Shortening PLAX 26.4 % 25 - 46 % LV Ejection Fraction 2D Teich 51.3 % IVS Diastolic Thickness 1.8 cm LVPW Diastolic Thickness 1.4 cm LV Relative Wall Thickness 0.6 RV Internal Dim ED PLAX 3.2 cm 1.9 - 3.8 cm LVOT Diameter 2.2 cm Aortic Root Diameter 3.0 cm LA Systolic Diameter LX 4.4 cm 3.0 - 4.0 / 2.7 - 3.8 cm LA Volume 101.0 cm 18 - 58 / 22 - 52 cm Ascending Aorta Diameter 3.4 cm DOPPLER AV Peak Velocity 141.0 cm/s AV Peak Gradient 8.0 mmHg AV Mean Velocity 88.7 cm/s AV Mean Gradient 4.0 mmHg AV Velocity Time Integral 35.2 cm LVOT Peak Velocity 113.0 cm/s LVOT Peak Gradient 5.1 mmHg LVOT Mean Velocity 60.9 cm/s LVOT Mean Gradient 2.0 mmHg LVOT Velocity Time Integral 25.2 cm LVOT Stroke Volume 95.8 cm AV Area Cont Eq vti 2.7 cm AV Area Cont Eq pk 3.0 cm MV Peak Velocity 134.0 cm/s MV Peak Gradient 7.2 mmHg MV Mean Velocity 66.7 cm/s MV Mean Gradient 2.0 mmHg Mitral E Point Velocity 135.0 cm/s Mitral A Point Velocity 59.7 cm/s Mitral E to A Ratio 2.3 MV PHT Velocity 154.0 cm/s MV Deceleration Davis 738.0 cm/s MV Pressure Half Time 62.6 ms MV Area PHT 3.5 cm MV Deceleration Time 169.0 ms MR Peak Velocity 516.0 cm/s MR Peak Gradient 106.5 mmHg TR Peak Velocity 308.0 cm/s TR Peak Gradient 37.9 mmHg Right Atrial Pressure 10.0 mmHg Pulmonary Artery Systolic Pressu 47.9 mmHg Right Ventricular Systolic Press 47.9 mmHg PV Peak Velocity 102.0 cm/s PV Peak Gradient 4.2 mmHg PV Mean Velocity 71.8 cm/s PV Mean Gradient 2.0 mmHg PV Velocity Time Integral 24.6 cm LV E' Lateral Velocity 5.1 cm/s Mitral E to LV E' Lateral Ratio 26.6 LV E' Septal Velocity 6.0 cm/s Mitral E to LV E' Septal Ratio 22.4
--- NOTE | 2016-08-24 15:44 | Cons- Orthopedic ---
General Information and HPI Consulting Request Date of Consult: 08/25/16 Requested By: GAYLE FREIRE M.D History of Present Illness: Patient was admitted to the medical service for a hypertensive crisis and 1 week ago had sustained a left bimalleolar ankle fracture. He is alert he scheduled to have surgery on his own orthopedic surgeon we discussed that today. From an orthopedic point of use in an appropriate splint he has good blood flow to the left lower extremity is comfortable. He is scheduled once he gets cleared here at the hospital for his surgery with his private orthopedic surgeon. Allergies/Medications Allergies: Coded Allergies: No Known Allergies (08/23/16) Home Med List: No Known Home Medications Past History Medical History Blood Transfusion Hx: No Cardiovascular: hypertension Endocrine: diabetes Surgical History Pertinent Surgical History: non-contributory Family History Relations & Conditions If Any: FATHER Relation not specified for: Diabetes mellitus in father FH: diabetes mellitus FH: kidney failure Hypertension in father Psychosocial History Where Do You Live? Home Who Do You Live With? spouse Services at Home: None Primary Language: Guyanese Smoking Status: Current Everyday Smoker ([id number] years) ETOH Use: occasional use Illicit Drug Use: denies illicit drug use Functional Ability ADLs Independent: dressing, eating, toileting, bathing. Ambulation: independent IADLs Independent: shopping, housework, finances, food prep, telephone, transportation , medication admin. 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) Exam & Diagnostic Data Vital Signs and I&O Vital Signs Date Time Temp Pulse Resp B/P Pulse O2 O2 Flow FiO2 Ox Delivery Rate 08/24 1425 Room Air Room Air 08/24 1318 180/78 08/24 0849 192/82 08/24 0833 99.3 63 16 191/92 98 Room Air 08/24 0359 67 180/80 08/24 0317 61 200/90 08/24 0030 97.7 63 20 162/80 97 Room Air 08/23 2200 99 Room Air 08/23 2145 69 180/88 08/23 2004 77 200/98 08/23 1920 98.2 85 20 200/98 100 Room Air 08/23 1832 198/90 08/23 1634 82 18 192/80 98 Room Air Intake & Output 08/24 1600 08/24 0800 08/24 0000 08/23 1600 08/23 0800 08/23 0000 Intake Total 400 291 671 8503 Output Total 1200 450 300 650 Balance -800 300 0 350 Intake, Blood 350 Product Intake, IV 1000 Intake, Oral 400 400 300 Output, Urine 1200 450 300 650 Patient 160 lb 160 lb Weight Physical Exam: On physical exam alert oriented male with a splint on the left lower extremity that fits well he's neurologically fully intact in that area he has no pain at this point in time. He has normal range of motion of the left knee. Assessment/Plan Assessment/Plan Patient is splinted is comfortable has good neurologic function and has a physician who is going to do a open reduction internal fixation of his left ankle when he is cleared at this hospital. He does not need orthopedic care by the orthopedic team here at this hospital. Problem List: 1. Ankle fracture Consult Acknowledgment - Thank you for your consult request.
[2016-08-24 16:37] VITALS: BP 194/90
--- NOTE | 2016-08-24 17:07 | RADIOLOGY REPORT ---
EXAMINATION: XR TIBIA AND FIBULA, LEFT CLINICAL INFORMATION: Fracture at the ankle. Preoperative workup. COMPARISON: None TECHNIQUE: AP and lateral views of the left tibia and fibula were obtained. FINDINGS: Evaluation mildly limited by fracture splint. There is a trimalleolar fracture of the left ankle involvement of the ankle mortise: There is an oblique distal fibular fracture with approximately one cortex width of lateral displacement, a transverse medial malleolar fracture with approximately one cortex width of medial displacement and a minimally distracted vertically oriented posterior malleolar fracture. There is also a small avulsion fracture of the anterior malleolus. Associated soft tissue swelling and small ankle joint effusion are seen. The proximal tibia and fibula and the knee joint to the extent visualized appear unremarkable. IMPRESSION: Mildly displaced trimalleolar fracture of the left ankle. Associated small avulsion fracture of the anterior malleolus is also seen. Small ankle joint effusion.
--- NOTE | 2016-08-24 18:51 | Cons- Cardiology ---
General Information and HPI Consulting Request Date of Consult: 08/24/16 Requested By: GAYLE FREIRE M.D Reason for Consult: Positive troponin I and at risk status for coronary artery disease. Source of Information: patient, family Exam Limitations: no limitations History of Present Illness: Mr. Zaki Oleary is a 46-year-old male with a long-standing history and current tobacco use ([id number]), untreated hypertension, untreated diabetes mellitus, and dyslipidemia who was advised ED evaluation after preoperative blood work performed in anticipation of left lower extremity surgery revealed "acute" kidney injury, anemia, hyperkalemia, positive troponin I, etc. He denies any history of nonsteroidal anti-inflammatory drug use, IV contrast, or recent GISELL inhibitor or angiotensin receptor tejal therapy. Does admit to being on lisinopril remotely. Does state that both his parents were hypertensive and diabetic and that his father had end-stage renal disease requiring hemodialysis and ultimately transplantation. He also admits to nephrolithiasis and the passage of multiple stones after stent placement in 1994. Mr. Oleary denies any symptoms of chest discomfort, palpitations, shortness of breath, orthopnea, paroxysmal nocturnal dyspnea, dry cough, syncope, near syncope, lightheadedness, dizziness, or claudication. He does admit to intermittent bilateral lower extremity edema at typically resolves overnight. He also denies any history of coronary, valvular, dysrhythmic/conduction disease or cardiomyopathy. Allergies/Medications Allergies: Coded Allergies: No Known Allergies (08/23/16) Home Med List: No Known Home Medications Review of Systems Review of Systems: A 14 point system review was obtained and was noncontributory, other than as above. Past History Travel History Traveled to [place] past 21 day No Medical History Blood Transfusion Hx: No Cardiovascular: hypertension Renal: nephrolithiasis Musculoskeletal: s/p right knee surgery. Endocrine: diabetes Surgical History Surgical History: non-contributory Family History Relations & Conditions If Any: FATHER Relation not specified for: Diabetes mellitus in father FH: diabetes mellitus FH: kidney failure Hypertension in father Psychosocial History Where Do You Live? Home Who Do You Live With? spouse Services at Home: None Primary Language: Mexican Smoking Status: Current Everyday Smoker ([id number] years) ETOH Use: occasional use Illicit Drug Use: denies illicit drug use Functional Ability ADLs Independent: dressing, eating, toileting, bathing. Ambulation: independent IADLs Independent: shopping, housework, finances, food prep, telephone, transportation , medication admin. 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) Exam & Diagnostic Data Vital Signs and I&O Vital Signs Date Time Temp Pulse Resp B/P Pulse O2 O2 Flow FiO2 Ox Delivery Rate 08/24 1708 194/90 08/24 1637 97.6 58 16 194/90 98 Room Air 08/24 1425 Room Air Room Air 08/24 1318 180/78 08/24 0849 192/82 08/24 0833 99.3 63 16 191/92 98 Room Air 08/24 0359 67 180/80 08/24 0317 61 200/90 08/24 0030 97.7 63 20 162/80 97 Room Air 08/23 2200 99 Room Air 08/23 2145 69 180/88 08/23 2004 77 200/98 08/23 1920 98.2 85 20 200/98 100 Room Air 08/23 1832 198/90 Intake & Output 08/24 1600 08/24 0800 08/24 0000 08/23 1600 08/23 0800 08/23 0000 Intake Total 400 053 294 1468 Output Total 1200 450 300 650 Balance -800 300 0 350 Intake, Blood 350 Product Intake, IV 1000 Intake, Oral 400 400 300 Output, Urine 1200 450 300 650 Patient 160 lb 160 lb Weight Physical Exam: Well-developed, well-nourished middle-aged male in no acute distress. Vital signs: See above. HEENT: Normocephalic, atraumatic, EOMI, slightly dry mucous membranes. Neck: No JVD, no bruits. Lungs: Clear to auscultation bilaterally. Heart: S1, S2 murmur, gallop, or rub appreciated. PMI fifth ICS at [facility]. Abdomen: Soft, nontender, positive bowel sounds, no bruits. Extremities: Trace right lower extremity edema. Left foot with soft cast. Labs/Quinn Results: Laboratory Tests 08/24 08/24 08/24 0555 0115 0014 Chemistry Sodium (137 - 145 mmol/L) 141 Potassium (3.5 - 5.1 mmol/L) 5.3 H Chloride (98 - 107 mmol/L) 112 H Carbon Dioxide (22 - 30 mmol/L) 20 L Anion Gap (5 - 16) 10 BUN (9 - 20 mg/dL) 45 H 47 H Creatinine (0.7 - 1.2 mg/dL) 6.6 *H 6.5 *H Estimated GFR (>60 ml/min) 9 L 9 L BUN/Creatinine Ratio (7 - 25 %) 6.8 L Phosphorus (2.5 - 4.5 mg/dL) 6.5 H Iron (49 - 181 ug/dL) 22 L TIBC (261 - 462 ug/dL) 288 Ferritin (17.9 - 464 ng/mL) 31.3 Troponin I (<0.11 ng/ml) 0.78 *H Triglycerides (<150 mg/dL) 137 Cholesterol (< 200 MG/DL) 155 LDL Cholesterol, Calc (65 - 129 mg/dL) 98 HDL Cholesterol (40 - 60 mg/dL) 30 L Cholesterol/HDL Ratio (0.00 - 4.88 %) 5 H 25-OH Vitamin D Total (30 - 100 ng/ml) 8.0 L Hematology CBC w Diff NO MAN DIFF REQ WBC (4.8 - 10.8 /CUMM) 5.7 RBC (4.70 - 6.10 /CUMM) 2.58 L Hgb (14.0 - 18.0 G/DL) 7.4 *L Hct (42 - 52 %) 22.1 L MCV (80.0 - 94.0 FL) 85.4 MCH (27.0 - 31.0 PG) 28.8 RDW (11.5 - 14.5 %) 15.5 H Plt Count (130 - 400 /CUMM) 372 MPV (7.4 - 10.4 FL) 8.5 Gran % (42.2 - 75.2 %) 69.6 Lymphocytes % (20.5 - 51.1 %) 23.4 Monocytes % (1.7 - 9.3 %) 4.6 Eosinophils % (0 - 5 %) 1.2 Basophils % (0.0 - 2.0 %) 1.2 Absolute Granulocytes (1.4 - 6.5 /CUMM) 4.0 Absolute Lymphocytes (1.2 - 3.4 /CUMM) 1.3 Absolute Monocytes (0.10 - 0.60 /CUMM) 0.3 Absolute Eosinophils (0.0 - 0.7 /CUMM) 0.1 Absolute Basophils (0.0 - 0.2 /CUMM) 0.1 PUBS MCHC (33.0 - 37.0 G/DL) 33.8 Immunology SHAWN Titer Pending Anti-Nuclear Antibody Pending Serology Hepatitis A IgM Ab (NONREACTIVE) NONREACTIVE Hep Bs Antigen (NONREACTIVE) NONREACTIVE Hep B Core IgM Ab Conf (NONREACTIVE) NONREACTIVE Hepatitis C Antibody (NONREACTIVE) NONREACTIVE 08/24 08/23 0014 2208 Hematology CBC w Diff NO MAN DIFF REQ WBC (4.8 - 10.8 /CUMM) 6.6 RBC (4.70 - 6.10 /CUMM) 2.29 L Hgb (14.0 - 18.0 G/DL) 6.4 *L Hct (42 - 52 %) 19.6 *L MCV (80.0 - 94.0 FL) 85.3 MCH (27.0 - 31.0 PG) 28.0 RDW (11.5 - 14.5 %) 16.0 H Plt Count (130 - 400 /CUMM) 391 MPV (7.4 - 10.4 FL) 8.1 Gran % (42.2 - 75.2 %) 74.6 Lymphocytes % (20.5 - 51.1 %) 18.7 L Monocytes % (1.7 - 9.3 %) 5.1 Eosinophils % (0 - 5 %) 0.8 Basophils % (0.0 - 2.0 %) 0.8 Absolute Granulocytes (1.4 - 6.5 /CUMM) 4.9 Absolute Lymphocytes (1.2 - 3.4 /CUMM) 1.2 Absolute Monocytes (0.10 - 0.60 /CUMM) 0.3 Absolute Eosinophils (0.0 - 0.7 /CUMM) 0.1 Absolute Basophils (0.0 - 0.2 /CUMM) 0.1 PUBS MCHC (33.0 - 37.0 G/DL) 32.8 L Immunology Immunoelectrophoresis Pending ANCA Pending Complement C3 Pending Complement C4 Pending Miscellaneous Ref Lab Test Result Pending 08/23 08/23 08/23 1415 1415 1141 Chemistry Hemoglobin A1c Pending Urines Urinalysis LIGHT H Urine Color (YEL,AMB,STR) YEL Urine Clarity (CLEAR) CLEAR Urine pH (5.0 - 8.0) 7.0 Ur Specific [place] (1.001 - 1.035) 1.020 Urine Protein (NEG,<30 MG/DL) >=300 H Urine Ketones (NEG) NEG Urine Nitrite (NEG) NEG Urine Bilirubin (NEG) NEG Urine Urobilinogen (0.1 - 1.0 EU/dl) 0.2 Ur Leukocyte Esterase (NEG) NEG Ur Microscopic SEDIMENT EXAMINED Urine RBC (0 - 5 /HPF) 1-3 Urine WBC (0 - 2 /HPF) 3-5 H Urine Mucus (FEW,NONE) RARE Urine Hemoglobin (NEG) SMALL H Ur Random Creatinine (mg/dL) 46.1 Ur Random Sodium (30 - 90 mmol/L) 91 H Ur Random Potassium (mmol/L) 33.7 Fraction Sodium Excret (<1% %) 9.5 H Urine Glucose (N MG/DL) 100 H 08/23 08/23 1141 UNK Chemistry Sodium (137 - 145 mmol/L) 143 Potassium (3.5 - 5.1 mmol/L) 5.0 Chloride (98 - 107 mmol/L) 111 H Carbon Dioxide (22 - 30 mmol/L) 21 L Anion Gap (5 - 16) 11 BUN (9 - 20 mg/dL) 51 H Creatinine (0.7 - 1.2 mg/dL) 6.9 *H Estimated GFR (>60 ml/min) 9 L BUN/Creatinine Ratio (7 - 25 %) 7.4 Glucose (65 - 99 mg/dL) 88 Calcium (8.4 - 10.2 mg/dL) 8.5 Phosphorus (2.5 - 4.5 mg/dL) 6.5 H Magnesium (1.6 - 2.3 mg/dL) 2.0 Total Bilirubin (0.2 - 1.3 mg/dL) 0.5 AST (17 - 59 U/L) 18 ALT (21 - 72 U/L) 23 Alkaline Phosphatase (< 127 U/L) 88 Troponin I (<0.11 ng/ml) 1.03 *H Total Protein (6.3 - 8.2 g/dL) 6.7 Albumin (3.5 - 5.0 g/dL) 3.4 L Globulin (1.9 - 4.2 gm/dL) 3.3 Albumin/Globulin Ratio (1.1 - 2.2 %) 1.0 L Hematology CBC w Diff NO MAN DIFF REQ WBC (4.8 - 10.8 /CUMM) 6.7 RBC (4.70 - 6.10 /CUMM) 2.50 L Hgb (14.0 - 18.0 G/DL) 7.0 *L Hct (42 - 52 %) 21.2 L MCV (80.0 - 94.0 FL) 84.5 MCH (27.0 - 31.0 PG) 27.8 RDW (11.5 - 14.5 %) 16.3 H Plt Count (130 - 400 /CUMM) 463 H MPV (7.4 - 10.4 FL) 7.6 Gran % (42.2 - 75.2 %) 73.3 Lymphocytes % (20.5 - 51.1 %) 19.1 L Monocytes % (1.7 - 9.3 %) 5.5 Eosinophils % (0 - 5 %) 1.1 Basophils % (0.0 - 2.0 %) 1.0 Absolute Granulocytes (1.4 - 6.5 /CUMM) 4.9 Absolute Lymphocytes (1.2 - 3.4 /CUMM) 1.3 Absolute Monocytes (0.10 - 0.60 /CUMM) 0.4 Absolute Eosinophils (0.0 - 0.7 /CUMM) 0.1 Absolute Basophils (0.0 - 0.2 /CUMM) 0.1 PUBS MCHC (33.0 - 37.0 G/DL) 32.9 L Urines Ur Random Creatinine (mg/dL) 50.3 U Random Total Protein (0 - 12 mg/dL) 312.1 H Protein/Creatinin Ratio (< 0.2) 6.20 H Diagnostic Data EKG Results Sinus rhythm, probable LVH, small lateral Q waves probably secondary to LVH, and ST-T wave abnormalities consistent with LVH and/or ischemia. Other Results Echocardiogram (08/24/2016) Moderate to marked concentric left ventricular hypertrophy. Normal left ventricular ejection fraction visually estimated at >65 %. Normal left ventricular diastolic filling pattern for age. Mild to moderate left atrial dilatation. Mild thickening/calcification of the mitral valve leaflets. Mild mitral annular calcification. Trace mitral regurgitation. Focal thickening of the aortic valve cusps. No aortic stenosis. Pulmonary artery systolic pressure is elevated at 45-50 mm Hg. Dilated IVC. Renal ultrasound (08/23/2016) Increased bilateral renal echogenicity compatible with underlying medical renal disease. No evidence of stones or hydronephrosis. Left renal cyst. X-ray left lower extremity (08/24/2016) Mildly displaced trimalleolar fracture of the left ankle. Associated small avulsion fracture of the anterior malleolus is also seen. Small ankle joint effusion. Assessment/Plan Assessment/Plan Middle-aged male with a risk equivalent and multiple risk factors for coronary artery disease who presents with poorly controlled hypertension and abnormal blood work consistent with CKD plus/minus degree of VIKRAM, anemia, hyperkalemia, positive troponin I, etc. with electrocardiographic/ echocardiographic evidence of left ventricular hypertrophy, ultrasound evidence of medical renal disease, etc. Suspect his troponin I elevation is on the basis of demand ischemia (left ventricular hypertrophy) and chronic kidney disease which is also the most likely etiology for his anemia, hyperkalemia, etc. His hypertension also needs to be treated. Would place on a 2 g sodium diet. Reasonable to place him on diuretic therapy given evidence of edema. The dihydropyridine calcium channel antagonist amlodipine would also be reasonable as we want to avoid GISELL inhibitor or angiotensin receptor tejal therapy, given his hyperkalemia, and beta blockers as his heart rate is already in the 60 beat per minute range. Will review the echocardiographic images. Follow up potassium and treat hyperkalemia as needed. Follow up H/H after transfusion of packed red cells. Check all stools for occult blood. Check iron, TIBC, ferritin, SIEP, etc. Follow-up on nephrology recommendations. Continue DVT prophylaxis. Consult Acknowledgment - Thank you for your consult request.
[2016-08-24 22:41] VITALS: BP 176/70
[2016-08-25 00:03] VITALS: BP 180/96
--- NOTE | 2016-08-25 06:55 | PN- Housestaff ---
BENNETT PLATA,EMRE 08/25/16 0654: Subjective Follow-up For: renal failure htn urgency ankle fracture demand ischemia Tele-Events Since Last Visit: SB 50s. Subjective: Pt was seen and examined this morning, reports getting more sleep last night. He had 8/10 left ankle pain. He would have preferred to get the ankle surgery here in the hospital. But he will follow up with Dr. Jian Gayle. He has not been ambulating much, encouraged him to ambulate (no weight bearing on the left). His BP continues to be high, range 176-193/70-90. If BP continues to be > 180 in the afternoon, we will add hydralazine 25 tid to his current BP regimen. Iron pills started for iron deficiency anemia. Review of Systems Constitutional: Denies: chills, fever. EENTM: Denies: visual changes. Cardiovascular: Denies: chest pain, palpitations. Respiratory: Denies: cough. Gastrointestinal: Denies: abdominal pain. Objective Last 24 Hrs of Vital Signs/I&O Vital Signs Date Time Temp Pulse Resp B/P Pulse O2 O2 Flow FiO2 Ox Delivery Rate 08/25 0800 97.8 73 20 184/80 98 Room Air 08/25 0757 188/84 08/25 0756 188/84 08/25 0003 68 180/96 08/24 2241 98.0 62 20 176/70 97 Room Air 08/24 2113 62 176/70 08/24 1708 194/90 08/24 1637 97.6 58 16 194/90 98 Room Air 08/24 1425 Room Air Room Air 08/24 1318 180/78 Intake & Output 08/25 1600 08/25 0800 08/25 0000 Intake Total 240 480 Output Total 1150 850 Balance -910 -370 Intake, Oral 240 480 Output, Urine 1150 850 Physical Exam General Appearance: Alert, Oriented X3, Cooperative, No Acute Distress Skin: No Significant Lesion HEENT: Atraumatic Cardiovascular: Regular Rate, Normal S1, Normal S2, No Murmurs, Gallops, Rubs Lungs: Clear to Auscultation, Normal Air Movement Abdomen: Normal Bowel Sounds, Soft, No Tenderness Neurological: Normal Speech Extremities: no edema Current Medications: Current Medications Sig/Alban Start time Last Medication Dose Route Stop Time Status Admin Amlodipine Besylate 10 MG DAILY 08/25 1000 AC 08/25 PO 0756 Amlodipine Besylate 5 MG ONCE ONE 08/24 1615 DC 08/24 PO 08/24 1616 1708 Amlodipine Besylate 5 MG DAILY 08/24 1115 DC 08/24 PO 1318 Docusate Sodium 100 MG BID 08/25 1000 AC PO Ferrous Gluconate 325 MG BID 08/25 1000 AC PO Furosemide 80 MG DAILY 08/24 1110 AC 08/25 PO 0756 Metoprolol Tartrate 25 MG BID 08/23 2200 AC 08/24 PO 0849 Oxycodone HCl 5 MG Q6P PRN 08/23 1715 AC 08/25 PO 0756 Patient Medication 1 ED .STK-MED ONE 08/24 1413 DC Teaching ED 08/24 1414 Polyethylene Glycol 17 GM DAILY 08/25 1000 AC PO Senna/Docusate Sodium 1 TAB BID PRN 08/25 0945 AC PO Last 24 Hrs of Lab/Quinn Results Last 24 Hrs of Labs/Mics: Laboratory Tests 08/25/16 0620: Anion Gap 10, Estimated GFR 9 L, BUN/Creatinine Ratio 7.2, Phosphorus 6.5 H, Magnesium 1.9, CBC w Diff NO MAN DIFF REQ, RBC 2.51 L, MCV 85.7, MCH 28.0, RDW 15.6 H, MPV 9.1, Gran % 60.3, Lymphocytes % 29.9, Monocytes % 6.9, Eosinophils % 2.1, Basophils % 0.8, Absolute Granulocytes 2.3, Absolute Lymphocytes 1.1 L, Absolute Monocytes 0.3, Absolute Eosinophils 0.1, Absolute Basophils 0, PUBS MCHC 32.7 L Assessment/Plan Assessment: 46-year-old male with PMH of HTN was sent in for K6.5 and GFR8 with peaked T waves on EKG found on pre-op lab. On admission, his labs were grossly abnormal with BUN/Cr of 51/6.9 (November 2010 was 19/1), H/H of 7/21.2 (November 2010 was 16.5/47.7 ). BP in the ED was up to 225/108, which improved to 187/91, a total of 15 mg IV hydralazine. Pt admitted to [facility] with the following problems addressed: # Renal failure (acute vs chronic?) # Anemia # Hypertensive urgency # Positive troponin # Left ankle fracture # Renal failure Renal US: Increased bilateral renal echogenicity compatible with underlying medical renal disease. - BUN/Cr: 51/6.9 - Urine cr 46.1 - Fena 9.5% - Urine protein > 300 - Phos 6.5 - Bilateral pitting edema --> resolved with lasix - Hep B & C serologies negative * Follow BEP, Phos * Nephrology consult placed * Follow lipid panel, hba1c * Follow SIEP, Serum free light chains, SHAWN, C3, C4, ANCA, * Lasix 80 mg po qday * OP f/u with GFP # Anemia - Stool guaiac done and was negative - Hg 7.0 --> 6.4 --> Received 1 unit PRBC --> hg 7.4 --> 7 * Monitor CBC. goal hg > 7. Transfuse if < 7 * Guaiac all stool, * Iron studies Iron 22L, TIBC 288, [id number]. Iron pills started # Hypertensive urgency - Goal BP < 190 for now * Start metoprolol 25 mg bid, amlodipine 10 mg daily * If BP>180, start hydralazine 25 bid # Positive troponin most likely demand ischemia from hypertension vs renal failure - Echo Aug 2016: Moderate to marked concentric left ventricular hypertrophy. Normal left ventricular ejection fraction visually estimated at >65. Normal left ventricular diastolic filling pattern for age. Mild to moderate left atrial dilatation. Mild thickening/calcification of the mitral valve leaflets. Mild mitral annular calcification. Trace mitral regurgitation. Focal thickening of the aortic valve cusps. No aortic stenosis. Pulmonary artery systolic pressure is elevated at 45-50 mm Hg. Dilated IVC. * Cardiology consulted: Dr. Quan * Trop 1.03 --. 0.78 * LE doppler to r/u DVT * Will follow up as OP with Dr. Quan for stress test (most likely nuclear stress test) # Left ankle fracture - ankle xray: Mildly displaced trimalleolar fracture of the left ankle. Associated small avulsion fracture of the anterior malleolus is also seen. Small ankle joint effusion. * Pain control with oxycodone (can inc oxycodone to 10 mg if pain not well controlled) * Ortho consulted: nephro recc doing surgery while he is inpatient so that we can monitor him closely postoop. Ortho recommend f/u with Dr. Jian Gayle # Suspected PVD Arterial US: Elevated velocities in the right popliteal artery suggests underlyingstenosis. Elevated velocities at the level of the left superficial femoral artery andpopliteal arteries suggests underlying stenosis. Greater sensitivity and specificity can be obtained with pre-and post exercise PVRs with HAYDEE calculations. Also consider dedicated CTA for further anatomical detail. - Pt asymptomatic, no complains of claudication, given kidney functions currently, CTA not reccommended at this time. * Will follow up with vascular as OP # Nicotine dependence * Counselled on cessation * Refused nicotine patch at this time Diet: Heart healthy : 2 gram Na & K diet DVT ppx: mech (no pharm due to anemia) FULL CODE Problem List: 1. Renal failure 2. Hypertensive urgency 3. Ankle fracture Pain Ratin Pain Location: left ankle Pain Goal: Pain 7 or less Pain Plan: wants to stay on current regimen of oxycodone Tomorrow's Labs & Rationales: cbc for anemia MOUNA PLATA,GAYLE 08/25/16 1350: Attending MD Review Statement Attending Statement Attending MD Statement: examined this patient, discuss w/resident/PA/SENIOR QUANTITY SURVEYOR, agreed w/resident/PA/SENIOR QUANTITY SURVEYOR, reviewed EMR data (avail), discussed with nursing, discussed with case mgmt, amended to note Attending Assessment/Plan: Patient seen and examined. Resting comfortably and not in any acute distress. No events on telemetry overnight. Blood pressure remains elevated in the 190s this morning. Creatinine remains elevated at 6.7 today. Creatinine was 6.6 yesterday. He is voiding adequately and is currently in the negative fluid balance following the administration of diuretic therapy. On examination lungs are clear bilaterally. Heart sounds are regular. Right lower extremity edema has markedly reduced. He has palpable pulses right lower extremity. Extremities are not cold to touch. There is no area of discoloration. Hemoglobin level is 7.0 today. He did receive 1 unit of blood following admission. Stool guaiac is reported as being negative. Lower extremity Dopplers were considered 80s lower extremity edema however these have essentially resolved following diuretic therapy. He did have arterial Dopplers done which showed evidence of stenosis bilaterally. Fortunately on clinical exam he shows no evidence of ischemia. He is unable to have CT angiogram due to his renal disease. Recommendations: -Further optimize blood pressure control by adding low-dose hydralazine to his medication regimen starting this evening. -Patient will need to follow-up with the cardiology service as an outpatient for ischemic workup. He will also require evaluation by the vascular surgery service as an outpatient. -For now we will hold off antiplatelet therapy due to his unexplained anemia. -Start iron supplementation for his iron deficiency. -He will need hematology referral as an outpatient. -His hemoglobin A1c, LDL and triglycerides are within normal limits.
[2016-08-25 08:00] VITALS: BP 184/80
[2016-08-25 08:10] LABS: ABSOLUTE BASOPHIL COUNT 0 /CUMM (0.0-0.2); ABSOLUTE EOSINOPHIL COUNT 0.1 /CUMM (0.0-0.7); ABSOLUTE GRANULOCYTE CT 2.3 /CUMM (1.4-6.5); ABSOLUTE LYMPH COUNT 1.1 /CUMM (1.2-3.4); ABSOLUTE MONOCYTE COUNT 0.3 /CUMM (0.10-0.60); BASOPHIL % 0.8 % (0.0-2.0); EOSINOPHIL % 2.1 % (0-5); GRANULOCYTE % 60.3 % (42.2-75.2); MEAN CORPUSCULAR HGB CONC 32.7 G/DL (33.0-37.0); MEAN CORPUSCULAR VOLUME 85.7 FL (80.0-94.0); MEAN PLATELET VOLUME 9.1 FL (7.4-10.4); RBC DISTRIBUTION WIDTH 15.6 % (11.5-14.5); RED BLOOD CELL CT 2.51 /CUMM (4.70-6.10)
--- NOTE | 2016-08-25 09:00 | ULTRASOUND REPORT ---
EXAMINATION: US-BILAT LOW EXTR ARTERIAL DOP CLINICAL INFORMATION: Bilateral leg swelling, likely nephrotic. COMPARISON: None TECHNIQUE: Real-time ultrasound and Doppler techniques (integrating B-mode 2-D vascular images, Doppler spectral analysis and color flow Doppler imaging) were utilized to interrogate the lower extremities. FINDINGS: Right lower extremity: Common femoral artery: 126 cm/sec; triphasic waveform Superficial femoral artery proximal: 103 cm/sec; biphasic waveform Superficial femoral artery mid portion: 73 cm/sec; biphasic waveform Superficial femoral artery distal: 105 cm/sec; biphasic waveform Profunda artery: 105 cm/sec; biphasic waveform Popliteal artery: 225 cm/sec; triphasic waveform Posterior tibial artery: 95 cm/sec; multiphasic waveform Anterior tibial artery: 70 cm/sec; biphasic waveform Dorsalis pedis artery: 66 cm/sec; biphasic waveform Left lower extremity: Common femoral artery: 126 cm/sec; triphasic waveform Superficial femoral artery proximal: 227 cm/sec; monophasic waveform Superficial femoral artery mid portion: 68 cm/sec; biphasic waveform Superficial femoral artery distal: 1:15 cm/sec; monophasic waveform Profunda artery: 114 cm/sec; monophasic waveform Popliteal artery: 210 cm/sec; monophasic waveform Posterior tibial artery: 195 cm/sec; monophasic waveform Anterior tibial artery: 92 cm/sec; monophasic waveform ADDITIONAL FINDINGS: None. IMPRESSION: Elevated velocities in the right popliteal artery suggests underlying stenosis. Elevated velocities at the level of the left superficial femoral artery and popliteal arteries suggests underlying stenosis. Greater sensitivity and specificity can be obtained with pre-and post exercise PVRs with HAYDEE calculations. Also consider dedicated CTA for further anatomical detail.
[2016-08-25 09:05] LABS: PLATELET COUNT 293 /CUMM (130-400); WHITE BLOOD CELL COUNT 10.2 /CUMM (4.8-10.8)
[2016-08-25] MEDS ORDERED: FERROUS GLUCON324 M2 PO (10:03)
[2016-08-25] MEDS ORDERED: NORVASC10 M1 PO (10:03)
[2016-08-25] MEDS ORDERED: LASIX40 M1 PO (10:03)
[2016-08-25] MEDS ORDERED: METOPROLOL TART25 M1 PO (10:03)
--- NOTE | 2016-08-25 10:09 | PN- Nephrology ---
Assessment/Plan Assessment: 1. Renal failure: likely chronic, stgae 5, due to diabetic & HTN nephrosclerosis. Await seroligic w/u but if unrevealing will not pursue renal bx. No current renal replacement indication but @ higher risk VIKRAM w surg & favor in hosp open reduction L ankle fx prior to discharge so renal function can be watched. 2. HTN: amlodipine added today; no RAAS interruption for now Suggestion: as above Subjective Subjective: Feeling well other than L leg pain No uremic sx No CP or SOB Objective Vital Signs and I&Os Vital Signs Date Time Temp Pulse Resp B/P Pulse O2 O2 Flow FiO2 Ox Delivery Rate 08/25 0800 97.8 73 20 184/80 98 Room Air 08/25 0757 188/84 08/25 0756 188/84 08/25 0003 68 180/96 08/24 2241 98.0 62 20 176/70 97 Room Air 08/24 2113 62 176/70 08/24 1708 194/90 08/24 1637 97.6 58 16 194/90 98 Room Air 08/24 1425 Room Air Room Air 08/24 1318 180/78 Intake & Output 08/25 1600 08/25 0400 08/24 1600 08/24 0400 08/23 1600 08/23 0400 Intake Total 395 811 3011 300 1000 Output Total 7516 021 5895 300 650 Balance -910 -370 -500 0 350 Intake, Blood 350 Product Intake, IV 1000 Intake, Oral 240 480 800 300 Output, Urine 5598 861 6769 300 650 Patient 160 lb 160 lb Weight Physical Exam General Appearance: well developed/nourished, no apparent distress Head: atraumatic, normal appearance Ears, Nose, Throat: normal ENT inspection Respiratory: normal breath sounds, quiet respiration, lungs clear Cardiovascular: regular rate/rhythm, friction rub (none) Abdomen: soft, non-tender Extremities: L leg splinted trace edema Current Medications: Current Medications Sig/Alban Start time Last Medication Dose Route Stop Time Status Admin Amlodipine Besylate 10 MG DAILY 08/25 1000 AC 08/25 PO 0756 Amlodipine Besylate 5 MG ONCE ONE 08/24 1615 DC 08/24 PO 08/24 1616 1708 Amlodipine Besylate 5 MG DAILY 08/24 1115 DC 08/24 PO 1318 Docusate Sodium 100 MG BID 08/25 1000 AC PO Ferrous Gluconate 325 MG BID 08/25 1000 AC PO Furosemide 80 MG DAILY 08/24 1110 AC 08/25 PO 0756 Metoprolol Tartrate 25 MG BID 08/23 2200 AC 08/24 PO 0849 Oxycodone HCl 5 MG Q6P PRN 08/23 1715 AC 08/25 PO 0756 Patient Medication 1 ED .STK-MED ONE 08/24 1413 ND Teaching ED 08/24 1414 Polyethylene Glycol 17 GM DAILY 08/25 1000 AC PO Senna/Docusate Sodium 1 TAB BID PRN 08/25 0945 AC PO Results Pertinent Lab Results: Laboratory Tests 08/25 08/24 0620 0555 Chemistry Sodium (137 - 145 mmol/L) 142 141 Potassium (3.5 - 5.1 mmol/L) 5.0 5.3 H Chloride (98 - 107 mmol/L) 111 H 112 H Carbon Dioxide (22 - 30 mmol/L) 20 L 20 L Anion Gap (5 - 16) 10 10 BUN (9 - 20 mg/dL) 48 H 45 H Creatinine (0.7 - 1.2 mg/dL) 6.7 *H 6.6 *H Estimated GFR (>60 ml/min) 9 L 9 L BUN/Creatinine Ratio (7 - 25 %) 7.2 6.8 L Phosphorus (2.5 - 4.5 mg/dL) 6.5 H 6.5 H Magnesium (1.6 - 2.3 mg/dL) 1.9 Triglycerides (<150 mg/dL) 137 Cholesterol (< 200 MG/DL) 155 LDL Cholesterol, Calc (65 - 129 mg/dL) 98 HDL Cholesterol (40 - 60 mg/dL) 30 L Cholesterol/HDL Ratio (0.00 - 4.88 %) 5 H Hematology CBC w Diff NO MAN DIFF REQ NO MAN DIFF REQ WBC (4.8 - 10.8 /CUMM) 10.2 5.7 RBC (4.70 - 6.10 /CUMM) 2.51 L 2.58 L Hgb (14.0 - 18.0 G/DL) 7.0 *L 7.4 *L Hct (42 - 52 %) 21.5 L 22.1 L MCV (80.0 - 94.0 FL) 85.7 85.4 MCH (27.0 - 31.0 PG) 28.0 28.8 RDW (11.5 - 14.5 %) 15.6 H 15.5 H Plt Count (130 - 400 /CUMM) 293 372 MPV (7.4 - 10.4 FL) 9.1 8.5 Gran % (42.2 - 75.2 %) 60.3 69.6 Lymphocytes % (20.5 - 51.1 %) 29.9 23.4 Monocytes % (1.7 - 9.3 %) 6.9 4.6 Eosinophils % (0 - 5 %) 2.1 1.2 Basophils % (0.0 - 2.0 %) 0.8 1.2 Absolute Granulocytes (1.4 - 6.5 /CUMM) 2.3 4.0 Absolute Lymphocytes (1.2 - 3.4 /CUMM) 1.1 L 1.3 Absolute Monocytes (0.10 - 0.60 /CUMM) 0.3 0.3 Absolute Eosinophils (0.0 - 0.7 /CUMM) 0.1 0.1 Absolute Basophils (0.0 - 0.2 /CUMM) 0 0.1 PUBS MCHC (33.0 - 37.0 G/DL) 32.7 L 33.8 08/24 08/24 08/24 0115 0014 0014 Chemistry BUN (9 - 20 mg/dL) 47 H Creatinine (0.7 - 1.2 mg/dL) 6.5 *H Estimated GFR (>60 ml/min) 9 L Iron (49 - 181 ug/dL) 22 L TIBC (261 - 462 ug/dL) 288 Ferritin (17.9 - 464 ng/mL) 31.3 Troponin I (<0.11 ng/ml) 0.78 *H 25-OH Vitamin D Total (30 - 100 ng/ml) 8.0 L Immunology Immunoelectrophoresis Pending SHAWN Titer Pending Anti-Nuclear Antibody Pending ANCA Pending Complement C3 Pending Complement C4 Pending Miscellaneous Ref Lab Test Result Pending Serology Hepatitis A IgM Ab (NONREACTIVE) NONREACTIVE Hep Bs Antigen (NONREACTIVE) NONREACTIVE Hep B Core IgM Ab Conf (NONREACTIVE) NONREACTIVE Hepatitis C Antibody (NONREACTIVE) NONREACTIVE 08/23 08/23 6910 1415 Hematology CBC w Diff NO MAN DIFF REQ WBC (4.8 - 10.8 /CUMM) 6.6 RBC (4.70 - 6.10 /CUMM) 2.29 L Hgb (14.0 - 18.0 G/DL) 6.4 *L Hct (42 - 52 %) 19.6 *L MCV (80.0 - 94.0 FL) 85.3 MCH (27.0 - 31.0 PG) 28.0 RDW (11.5 - 14.5 %) 16.0 H Plt Count (130 - 400 /CUMM) 391 MPV (7.4 - 10.4 FL) 8.1 Gran % (42.2 - 75.2 %) 74.6 Lymphocytes % (20.5 - 51.1 %) 18.7 L Monocytes % (1.7 - 9.3 %) 5.1 Eosinophils % (0 - 5 %) 0.8 Basophils % (0.0 - 2.0 %) 0.8 Absolute Granulocytes (1.4 - 6.5 /CUMM) 4.9 Absolute Lymphocytes (1.2 - 3.4 /CUMM) 1.2 Absolute Monocytes (0.10 - 0.60 /CUMM) 0.3 Absolute Eosinophils (0.0 - 0.7 /CUMM) 0.1 Absolute Basophils (0.0 - 0.2 /CUMM) 0.1 PUBS MCHC (33.0 - 37.0 G/DL) 32.8 L Urines Urinalysis LIGHT H Urine Color (YEL,AMB,STR) YEL Urine Clarity (CLEAR) CLEAR Urine pH (5.0 - 8.0) 7.0 Ur Specific [place] (1.001 - 1.035) 1.020 Urine Protein (NEG,<30 MG/DL) >=300 H Urine Ketones (NEG) NEG Urine Nitrite (NEG) NEG Urine Bilirubin (NEG) NEG Urine Urobilinogen (0.1 - 1.0 EU/dl) 0.2 Ur Leukocyte Esterase (NEG) NEG Ur Microscopic SEDIMENT EXAMINED Urine RBC (0 - 5 /HPF) 1-3 Urine WBC (0 - 2 /HPF) 3-5 H Urine Mucus (FEW,NONE) RARE Urine Hemoglobin (NEG) SMALL H Urine Glucose (N MG/DL) 100 H 08/23 08/23 08/23 1415 1141 1141 Chemistry Sodium (137 - 145 mmol/L) 143 Potassium (3.5 - 5.1 mmol/L) 5.0 Chloride (98 - 107 mmol/L) 111 H Carbon Dioxide (22 - 30 mmol/L) 21 L Anion Gap (5 - 16) 11 BUN (9 - 20 mg/dL) 51 H Creatinine (0.7 - 1.2 mg/dL) 6.9 *H Estimated GFR (>60 ml/min) 9 L BUN/Creatinine Ratio (7 - 25 %) 7.4 Glucose (65 - 99 mg/dL) 88 Hemoglobin A1c Pending Calcium (8.4 - 10.2 mg/dL) 8.5 Phosphorus (2.5 - 4.5 mg/dL) 6.5 H Magnesium (1.6 - 2.3 mg/dL) 2.0 Total Bilirubin (0.2 - 1.3 mg/dL) 0.5 AST (17 - 59 U/L) 18 ALT (21 - 72 U/L) 23 Alkaline Phosphatase (< 127 U/L) 88 Troponin I (<0.11 ng/ml) 1.03 *H Total Protein (6.3 - 8.2 g/dL) 6.7 Albumin (3.5 - 5.0 g/dL) 3.4 L Globulin (1.9 - 4.2 gm/dL) 3.3 Albumin/Globulin Ratio (1.1 - 2.2 %) 1.0 L Hematology CBC w Diff NO MAN DIFF REQ WBC (4.8 - 10.8 /CUMM) 6.7 RBC (4.70 - 6.10 /CUMM) 2.50 L Hgb (14.0 - 18.0 G/DL) 7.0 *L Hct (42 - 52 %) 21.2 L MCV (80.0 - 94.0 FL) 84.5 MCH (27.0 - 31.0 PG) 27.8 RDW (11.5 - 14.5 %) 16.3 H Plt Count (130 - 400 /CUMM) 463 H MPV (7.4 - 10.4 FL) 7.6 Gran % (42.2 - 75.2 %) 73.3 Lymphocytes % (20.5 - 51.1 %) 19.1 L Monocytes % (1.7 - 9.3 %) 5.5 Eosinophils % (0 - 5 %) 1.1 Basophils % (0.0 - 2.0 %) 1.0 Absolute Granulocytes (1.4 - 6.5 /CUMM) 4.9 Absolute Lymphocytes (1.2 - 3.4 /CUMM) 1.3 Absolute Monocytes (0.10 - 0.60 /CUMM) 0.4 Absolute Eosinophils (0.0 - 0.7 /CUMM) 0.1 Absolute Basophils (0.0 - 0.2 /CUMM) 0.1 PUBS MCHC (33.0 - 37.0 G/DL) 32.9 L Urines Ur Random Creatinine (mg/dL) 46.1 Ur Random Sodium (30 - 90 mmol/L) 91 H Ur Random Potassium (mmol/L) 33.7 Fraction Sodium Excret (<1% %) 9.5 H 08/23 UNK Urines Ur Random Creatinine (mg/dL) 50.3 U Random Total Protein (0 - 12 mg/dL) 312.1 H Protein/Creatinin Ratio (< 0.2) 6.20 H Imaging/Other Studies: Echocardiogram: CONCLUSIONS Moderate to marked concentric left ventricular hypertrophy. Normal left ventricular ejection fraction visually estimated at >65 Normal left ventricular diastolic filling pattern for age. Mild to moderate left atrial dilatation. Mild thickening/calcification of the mitral valve leaflets. Mild mitral annular calcification. Trace mitral regurgitation. Focal thickening of the aortic valve cusps. No aortic stenosis. Pulmonary artery systolic pressure is elevated at 45-50 mm Hg. Dilated IVC.
--- NOTE | 2016-08-25 10:48 | Patient Discharge Instructions ---
Discharge Instructions General Discharge Information You were seen/treated for: - Hypertensive urgency - Kidney dysfunction - Anemia requiring transfusion - High potassium - Demand ischemia - Ankle fracture - Peripheral vascular disease Special Instructions: - Please follow up with your new PCP, Dr. Power within a week. - Please follow up with nephrology, Dr. Hernandez, for your kidneys. - Please follow up with Dr. Jian Gayle for your ankle. Please do not take NSAIDs such as ibuprofen or aleve for your pain as it may worsen your kidney. You can continue to take the hydrocodone/acetaminophen as needed for pain. Try to use it sparingly. - Please do not bear weight on your left leg. - Please follow up with cardiology, Dr. Quan. You will need outpatient stress test. - Please follow up with Dr. Peraza (vascular surgery) to further assess peripheral vascular disease. - Please follow up with GI, Dr. Monteiro, for colonoscopy to further evaluate the anemia. - Your prescriptions have been sent to [facility] in [place]. Diet Continue normal diet: No Recommended Diet: Heart Healthy, Low salt , Low potassium Activity Full Activity/No Limits: No Activity Self Limited: Yes Acute Coronary Syndrome Inclusion Criteria At DC or during hospital stay patient has or had the following: ACS DIAGNOSIS No Discharge Core Measures Meds if any: Prescribed or Continued at Discharge Meds if any: NOT Prescribed or Continued at Discharge Congestive Heart Failure Inclusion Criteria At DC or during hospital stay patient has or had the following: CHF DIAGNOSIS No Discharge Core Measures Meds if any: Prescribed or Continued at Discharge Meds if any: NOT Prescribed or Continued at Discharge Cerebrovascular accident Inclusion Criteria At DC or during hospital stay patient has or had the following: CVA/TIA Diagnosis No Discharge Core Measures Meds if any: Prescribed or Continued at Discharge Meds if any: NOT Prescribed or Continued at Discharge Venous thromboembolism Inclusion Criteria VTE Diagnosis No VTE Type NONE VTE Confirmed by (Test) NONE Discharge Core Measures - Per Current guidelines, there needs to be overlap - treatment for the first 5 days of Warfarin therapy. - If discharged on Warfarin prior to 5 days of - overlap therapy, the patient will need to be - assessed for post discharge needs including - *Post discharge parental anticoagulation - *Warfarin and/or parental anticoagulation education - *Follow up date to check INR post discharge At least 5 days overlap therapy as Inpatient No Meds if any: Prescribed or Continued at Discharge Note: Overlap Therapy is Warfarin and Anticoagulant Meds if any: NOT Prescribed or Continued at Discharge
--- NOTE | 2016-08-25 14:40 | ULTRASOUND REPORT ---
EXAMINATION: US TRIPLEX LOWER EXTREMITY, BILATERAL CLINICAL INFORMATION: This is a 46-year-old male with history of bilateral leg edema, deep vein thrombosis, left ankle fracture. COMPARISON: None TECHNIQUE: Color-flow triplex imaging with spectral analysis and compression Doppler were performed on the bilateral lower extremities. FINDINGS: Respiratory variation, normal compression and augmented flow are noted throughout the bilateral lower extremities. The visualized common femoral vein, superficial femoral vein, profunda femoral vein, popliteal vein and midcalf peroneal and posterior tibial venous segments show no evidence of deep venous thrombosis. There is no Dc's cyst. IMPRESSION: With the exception of some subcutaneous edema, otherwise normal triplex scan without evidence of deep venous thrombosis involving the bilateral lower extremities.
[2016-08-25] MEDS ORDERED: HYDRALAZINE HCL25 M1 PO (15:35)
[2016-08-25 16:36] VITALS: BP 168/90
[2016-08-25 23:00] VITALS: BP 182/84
[2016-08-26] VITALS: BP 158/80
--- NOTE | 2016-08-26 07:07 | PN- Housestaff ---
BENNETT PLATA,EMRE 08/26/16 0706: Subjective Follow-up For: hypertensive urgency Tele-Events Since Last Visit: SB-SR rate 56-63 ST depression First degree heart block Subjective: Pt seen and examined this morning. Offers no complains. Feels ready to go home. Await CBC results this am. He had bm yesterday but did not save it. But did not see blood on the stool, no bright red blood or black stool. In the past, he has noted black stool, no colonoscopy done in the past. He will follow up as outpatient. His BP is better controlled with the addition of hydralazine, down to 158/80. Await CBC this am, to make further decision regarding transfusion. Review of Systems Constitutional: Denies: chills, fever. EENTM: Denies: visual changes. Cardiovascular: Denies: chest pain. Respiratory: Denies: cough. Gastrointestinal: Denies: abdominal pain. Objective Last 24 Hrs of Vital Signs/I&O Vital Signs Date Time Temp Pulse Resp B/P Pulse O2 O2 Flow FiO2 Ox Delivery Rate 08/26 0000 60 158/80 08/26 0000 95 Room Air 08/25 2300 98.1 57 18 182/84 98 Room Air 08/25 2117 57 182/84 08/25 2116 57 182/84 08/25 1800 170/74 08/25 1636 98.7 55 18 168/90 98 Room Air 08/25 1148 190/88 08/25 0800 97.8 73 20 184/80 98 Room Air Intake & Output 08/26 0800 08/26 0000 08/25 1600 Intake Total 240 400 600 Output Total 1200 Balance 240 400 -600 Intake, Oral 240 400 600 Output, Urine 1200 Patient 72.575 kg Weight Physical Exam General Appearance: Alert, Oriented X3, Cooperative, No Acute Distress Skin: No Significant Lesion HEENT: Atraumatic Neck: Supple Cardiovascular: Regular Rate, Normal S1, Normal S2, No Murmurs, Gallops, Rubs Lungs: Clear to Auscultation, Normal Air Movement Abdomen: Normal Bowel Sounds, Soft, No Tenderness Extremities: No Edema Current Medications: Current Medications Sig/Alban Start time Last Medication Dose Route Stop Time Status Admin Amlodipine Besylate 10 MG DAILY 08/25 1000 AC 08/25 PO 0756 Docusate Sodium 100 MG BID 08/25 1000 AC 08/25 PO 1148 Ferrous Gluconate 325 MG BID 08/25 1000 AC 08/25 PO 211 Furosemide 80 MG DAILY 08/24 1110 AC 08/25 PO 0756 Hydralazine HCl 25 MG TID 08/25 1515 AC 08/25 PO 211 Metoprolol Tartrate 25 MG BID 08/23 2200 AC 08/25 PO 2116 Oxycodone HCl 5 MG Q6P PRN 08/23 1715 AC 08/25 PO 180 Polyethylene Glycol 17 GM DAILY 08/25 1000 AC PO Senna/Docusate Sodium 1 TAB BID PRN 08/25 0945 AC PO Last 24 Hrs of Lab/Quinn Results Last 24 Hrs of Labs/Mics: Laboratory Tests 08/26/16 0620: Anion Gap 9, Estimated GFR 8 L, BUN/Creatinine Ratio 6.6 L, CBC w Diff NO MAN DIFF REQ, RBC 2.63 L, MCV 84.2, MCH 28.4, RDW 15.8 H, MPV 8.5, Gran % 65.1, Lymphocytes % 25.4, Monocytes % 6.2, Eosinophils % 2.2, Basophils % 1.1, Absolute Granulocytes 4.4, Absolute Lymphocytes 1.7, Absolute Monocytes 0.4, Absolute Eosinophils 0.1, Absolute Basophils 0.1, PUBS MCHC 33.8 Assessment/Plan Assessment: 46-year-old male with PMH of HTN was sent in for K6.5 and GFR8 with peaked T waves on EKG found on pre-op lab. On admission, his labs were grossly abnormal with BUN/Cr of 51/6.9 (November 2010 was 19/1), H/H of 7/21.2 (November 2010 was 16.5/47.7 ). BP in the ED was up to 225/108, which improved to 187/91, a total of 15 mg IV hydralazine. Pt admitted to tele with the following problems addressed: # Renal failure (acute vs chronic?) # Anemia # Hypertensive urgency # Positive troponin # Left ankle fracture # Renal failure Renal US: Increased bilateral renal echogenicity compatible with underlying medical renal disease. - BUN/Cr: 51/6.9 --> 47/7.1 - Urine cr 46.1 - Fena 9.5% - Urine protein > 300 - Phos 6.5 - Bilateral pitting edema --> resolved with lasix - Hep B & C serologies negative * Follow BEP, Phos * Nephrology consult placed * Follow lipid panel, hba1c * Follow SIEP, Serum free light chains, SHAWN, C3, C4, ANCA * Continue Lasix 80 mg po qday * OP f/u with GFP # Anemia - Stool guaiac done and was negative - Hg 7.0 --> 6.4 --> Received 1 unit PRBC --> hg 7.4 --> 7 --> 7.5 * Monitor CBC. goal hg > 7. Transfuse if < 7 * Guaiac all stool, * Iron studies Iron 22L, TIBC 288, [id number]. Iron pills started * Need outpatient colonoscopy # Hypertensive urgency - Goal BP < 190 for now * Start metoprolol 25 mg bid, amlodipine 10 mg daily, hydralazine 25 bid # Positive troponin most likely demand ischemia from hypertension vs renal failure - Echo Aug 2016: Moderate to marked concentric left ventricular hypertrophy. Normal left ventricular ejection fraction visually estimated at >65. Normal left ventricular diastolic filling pattern for age. Mild to moderate left atrial dilatation. Mild thickening/calcification of the mitral valve leaflets. Mild mitral annular calcification. Trace mitral regurgitation. Focal thickening of the aortic valve cusps. No aortic stenosis. Pulmonary artery systolic pressure is elevated at 45-50 mm Hg. Dilated IVC. * Cardiology consulted: Dr. Quan * Trop 1.03 --. 0.78 * LE doppler to r/u DVT negative * Will follow up as OP with Dr. Quan for stress test (most likely nuclear stress test) * ASpirin not started due to current anemia # Left ankle fracture - ankle xray: Mildly displaced trimalleolar fracture of the left ankle. Associated small avulsion fracture of the anterior malleolus is also seen. Small ankle joint effusion. * Pain control with oxycodone (can inc oxycodone to 10 mg if pain not well controlled) * Ortho consulted: nephro recc doing surgery while he is inpatient so that we can monitor him closely postoop. Ortho recommend f/u with Dr. Jian Gayle # Suspected PVD Arterial US: Elevated velocities in the right popliteal artery suggests underlyingstenosis. Elevated velocities at the level of the left superficial femoral artery andpopliteal arteries suggests underlying stenosis. Greater sensitivity and specificity can be obtained with pre-and post exercise PVRs with HAYDEE calculations. Also consider dedicated CTA for further anatomical detail. - Pt asymptomatic, no complains of claudication, given kidney functions currently, CTA not reccommended at this time. * Will follow up with vascular as OP * ASprin and plavix not started due to current anemia # Nicotine dependence * Counselled on cessation * Refused nicotine patch at this time Diet: Heart healthy : 2 gram Na & K diet [facility] FULL CODE Problem List: 1. Renal failure 2. Hypertensive urgency 3. Anemia Pain Ratin Pain Location: left ankle Pain Goal: Pain 7 or less Pain Plan: roxicodone Tomorrow's Labs & Rationales: none DVT/Prophylaxis: mechanical GAYLE FREIRE MD 08/26/16 1055: Attending MD Review Statement Attending Statement Attending MD Statement: examined this patient, discuss w/resident/PA/BEAUTY DIRECTOR, agreed w/resident/PA/BEAUTY DIRECTOR, discussed with family, reviewed EMR data (avail), discussed with nursing, discussed with case mgmt, amended to note Attending Assessment/Plan: Patient seen and examined this morning. Again resting comfortably in bed and not in any distress. No issues overnight. No events on telemetry. Blood pressure has improved further with addition of hydralazine yesterday. Recommendations: -Patient medically stable to be discharged home today. -He is being discharged on hydralazine, metoprolol, Lasix and amlodipine. -He is receiving aspirin therapy due to his unexplained anemia. -He is to follow-up with the GI service as an outpatient. He will also follow- up with the nephrology service. Outpatient workup will include erythropoietin levels with the nephrology service to determine if is a candidate for erythropoietin supplementation. -His troponin level is likely secondary to demand ischemia. He will follow-up with the cardiology service for ischemic workup particularly before surgical intervention for his ankle fracture. -His LDL is below 100. He has not been started on statin therapy for now. -Has been provided with referral to outpatient primary care practice and he has been encouraged to follow-up there. He appears determined to do so.
[2016-08-26 07:50] LABS: ABSOLUTE BASOPHIL COUNT 0.1 /CUMM (0.0-0.2); ABSOLUTE EOSINOPHIL COUNT 0.1 /CUMM (0.0-0.7); ABSOLUTE GRANULOCYTE CT 4.4 /CUMM (1.4-6.5); ABSOLUTE LYMPH COUNT 1.7 /CUMM (1.2-3.4); ABSOLUTE MONOCYTE COUNT 0.4 /CUMM (0.10-0.60); BASOPHIL % 1.1 % (0.0-2.0); EOSINOPHIL % 2.2 % (0-5); GRANULOCYTE % 65.1 % (42.2-75.2); HEMATOCRIT 22.1 % (42-52); MEAN CORPUSCULAR HGB 28.4 PG (27.0-31.0); MEAN CORPUSCULAR HGB CONC 33.8 G/DL (33.0-37.0); MEAN CORPUSCULAR VOLUME 84.2 FL (80.0-94.0); MEAN PLATELET VOLUME 8.5 FL (7.4-10.4); PLATELET COUNT 338 /CUMM (130-400); RBC DISTRIBUTION WIDTH 15.8 % (11.5-14.5); RED BLOOD CELL CT 2.63 /CUMM (4.70-6.10); WHITE BLOOD CELL COUNT 6.7 /CUMM (4.8-10.8)
[2016-08-26] MEDS ORDERED: HYDRALAZINE HCL25 M1 PO ×2 (08:01→09:51)
--- NOTE | 2016-08-26 08:07 | Discharge Summary ---
Visit Information Visit Dates Admission Date: 08/23/16 Discharge Date: 08/26/2016 Hospital Course Course Attending Physician: GAYLE FREIRE M.D Primary Care Physician: OMAR PLATA,[facility] Course: 46-year-old male with PMH of HTN was sent in for K6.5 and GFR8 with peaked T waves on EKG found on pre-op lab. On admission, his labs were grossly abnormal with BUN/Cr of 51/6.9 (November 2010 was 19/1), H/H of 7/21.2 (November 2010 was 16.5/47.7). BP in the ED was up to 225/108, which improved to 187/91, a total of 15 mg IV hydralazine. He was admitted to telemetry with the following problems addressed: # Renal failure: acute vs chronic? Most likely due to untreated hypertension and DM - BUN/Cr: 51/6.9 --> 47/7.1 - Urine cr 46.1 , Fena 9.5%, Urine protein > 300 ,Phos 6.5 - FH of ESRD due to HTN and DM requiring hemodialysis - Renal US: Increased bilateral renal echogenicity compatible with underlying medical renal disease. - Hba1c this admission 4.9, but in the past has had elevated glucose and hba1c and has not been treated. - Significant smoking hx, active smoker - Hep B & C serologies negative. SHAWN negative. * Follow results of SIEP, Serum free light chains, C3, C4, ANCA as OP * Will f/u with Dr. Hernandez as OP * Referred to Dr Power for new PCP # Bilateral pitting edema (most likely due to renal dysfunction) on admission: edema resolved with lasix * Lasix 80 mg po qday started and continued at discharge * BL LE doppler ruled out DVT # Anemia - secondary to renal dysfunction and iron deficiency anemia from GI blood loss - Stool guaiac done and was negative - Pt has noted black stool in the past - Hg 7.0 --> 6.4 --> Received 1 unit PRBC --> hg 7.4 --> 7 --> 7.5 - Iron studies Iron 22L, TIBC 288, .3. * Need outpatient colonoscopy. Referred to Dr. Monteiro * If workup negative, might need referral to hematology * Iron pills started # Hypertensive urgency - Admitted with BP 225/108. BP was 164/70 at discharge. * Started metoprolol 25 mg bid, amlodipine 10 mg daily, hydralazine 25 bid. Continued on the same # Positive troponin with ST depression on II,III,AvF, and ST elevation on V1 and V2, EKG changes could be due to left ventricular hypertrophy. Positive troponin could be exacerbated by renal dysfunction. - Pt had no complains of chest pain - Aspirin not started due to current anemia - Echo Aug 2016: Moderate to marked concentric left ventricular hypertrophy. Normal left ventricular ejection fraction visually estimated at >65. Normal left ventricular diastolic filling pattern for age. Mild to moderate left atrial dilatation. Mild thickening/calcification of the mitral valve leaflets. Mild mitral annular calcification. Trace mitral regurgitation. Focal thickening of the aortic valve cusps. No aortic stenosis. Pulmonary artery systolic pressure is elevated at 45-50 mm Hg. Dilated IVC. - Trop 1.03 --. 0.78 - Lipid panel: TG 137,Cholesterol 155, LDL 98, HDL 30L, Cholesterol/HDL 5 * Will follow up as OP with Dr. Quan for stress test (most likely nuclear stress test) # Left ankle fracture - Ankle xray: Mildly displaced trimalleolar fracture of the left ankle. Associated small avulsion fracture of the anterior malleolus is also seen. Small ankle joint effusion. * Pain control with oxycodone while inpatient. * He has 30 pills of hydrocodone/acetaminophen but has only used 2 pills. Instructed him to continue using it as needed. * Ortho consulted: nephro recc doing surgery while he is inpatient so that we can monitor him closely postoop. Ortho (Dr. Fuller) recommend f/u with Dr. Meagan Gayle # Suspected PVD - Arterial US: Elevated velocities in the right popliteal artery suggests underlyingstenosis. Elevated velocities at the level of the left superficial femoral artery andpopliteal arteries suggests underlying stenosis. Greater sensitivity and specificity can be obtained with pre-and post exercise PVRs with HAYDEE calculations. Also consider dedicated CTA for further anatomical detail. - Pt asymptomatic, no complains of claudication, given kidney functions currently, CTA not reccommended at this time. * Will follow up with vascular, Dr. Peraza, as OP * Asprin and plavix not started due to current anemia # Nicotine dependence * Counselled on cessation * Refused nicotine patch at this time # Low vitamin D - 25OH Vit D: 8L * Started on 1000 IU Vit D * Please follow up Vit D level Diet: Heart healthy - 2 gram Na & K diet DVT ppx: mech (no pharm due to anemia) FULL CODE Allergies: Coded Allergies: No Known Allergies (08/23/16) Significant Procedures: EXAM TYPE: US - US-EXT BILAT VENOUS DOPPLER EXAMINATION: US TRIPLEX LOWER EXTREMITY, BILATERAL CLINICAL INFORMATION: This is a 46-year-old male with history of bilateral leg edema, deep vein thrombosis, left ankle fracture. COMPARISON: None TECHNIQUE: Color-flow triplex imaging with spectral analysis and compression Doppler were performed on the bilateral lower extremities. FINDINGS: Respiratory variation, normal compression and augmented flow are noted throughout the bilateral lower extremities. The visualized common femoral vein, superficial femoral vein, profunda femoral vein, popliteal vein and midcalf peroneal and posterior tibial venous segments show no evidence of deep venous thrombosis. There is no Dc's cyst. IMPRESSION: With the exception of some subcutaneous edema, otherwise normal triplex scan without evidence of deep venous thrombosis involving the bilateral lower extremities. DICTATED BY: PETE MADRID MD DATE/TIME DICTATED:08/25/161343 EXAM TYPE: RAD - [id number], LEFT EXAMINATION: XR TIBIA AND FIBULA, LEFT CLINICAL INFORMATION: Fracture at the ankle. Preoperative workup. COMPARISON: None TECHNIQUE: AP and lateral views of the left tibia and fibula were obtained. FINDINGS: Evaluation mildly limited by fracture splint. There is a trimalleolar fracture of the left ankle involvement of the ankle mortise: There is an oblique distal fibular fracture with approximately one cortex width of lateral displacement, a transverse medial malleolar fracture with approximately one cortex width of medial displacement and a minimally distracted vertically oriented posterior malleolar fracture. There is also a small avulsion fracture of the anterior malleolus. Associated soft tissue swelling and small ankle joint effusion are seen. The proximal tibia and fibula and the knee joint to the extent visualized appear unremarkable. IMPRESSION: Mildly displaced trimalleolar fracture of the left ankle. Associated small avulsion fracture of the anterior malleolus is also seen. Small ankle joint effusion. DICTATED BY: VIJAY AWAN MD DATE/TIME DICTATED:08/24/161654 ECHOCARDIOGRAM FINDINGS Left Ventricle Normal size left ventricle. Moderate to marked concentric left ventricular hypertrophy. Normal left ventricular ejection fraction visually estimated at >65 %. No obvious regional wall motion abnormalities. Normal left ventricular diastolic filling pattern for age. Right Ventricle The right ventricle is normal in size and function. Right Atrium The right atrium is normal in size. Left Atrium Mild to moderate left atrial dilatation. Mitral Valve Mild thickening/calcification of the mitral valve leaflets. Mild mitral annular calcification. Trace mitral regurgitation. Aortic Valve Focal thickening of the aortic valve cusps. No aortic stenosis. No aortic regurgitation. Tricuspid Valve The tricuspid valve is normal in structure and function. There is trace tricuspid regurgitation. Pulmonary artery systolic pressure is elevated at 45-50 mm Hg. Pulmonic Valve Pulmonic valve not well visualized, grossly normal. Trace pulmonic regurgitation. Pericardium Normal pericardium without effusion. No pleural effusion. Great Vessels Dilated IVC. Normal size aortic root. CONCLUSIONS Moderate to marked concentric left ventricular hypertrophy. Normal left ventricular ejection fraction visually estimated at >65 Normal left ventricular diastolic filling pattern for age. Mild to moderate left atrial dilatation. Mild thickening/calcification of the mitral valve leaflets. Mild mitral annular calcification. Trace mitral regurgitation. Focal thickening of the aortic valve cusps. No aortic stenosis. Pulmonary artery systolic pressure is elevated at 45-50 mm Hg. Dilated IVC. Waqas Dumont M.D. (Electronically Signed) Final Date: 24 August 2016 13:03 EXAM TYPE: US - US-BILAT LOW EXTR ARTERIAL DOP EXAMINATION: US-BILAT LOW EXTR ARTERIAL DOP CLINICAL INFORMATION: Bilateral leg swelling, likely nephrotic. COMPARISON: None TECHNIQUE: Real-time ultrasound and Doppler techniques (integrating B-mode 2-D vascular images, Doppler spectral analysis and color flow Doppler imaging) were utilized to interrogate the lower extremities. FINDINGS: Right lower extremity: Common femoral artery: 126 cm/sec; triphasic waveform Superficial femoral artery proximal: 103 cm/sec; biphasic waveform Superficial femoral artery mid portion: 73 cm/sec; biphasic waveform Superficial femoral artery distal: 105 cm/sec; biphasic waveform Profunda artery: 105 cm/sec; biphasic waveform Popliteal artery: 225 cm/sec; triphasic waveform Posterior tibial artery: 95 cm/sec; multiphasic waveform Anterior tibial artery: 70 cm/sec; biphasic waveform Dorsalis pedis artery: 66 cm/sec; biphasic waveform Left lower extremity: Common femoral artery: 126 cm/sec; triphasic waveform Superficial femoral artery proximal: 227 cm/sec; monophasic waveform Superficial femoral artery mid portion: 68 cm/sec; biphasic waveform Superficial femoral artery distal: 1:15 cm/sec; monophasic waveform Profunda artery: 114 cm/sec; monophasic waveform Popliteal artery: 210 cm/sec; monophasic waveform Posterior tibial artery: 195 cm/sec; monophasic waveform Anterior tibial artery: 92 cm/sec; monophasic waveform ADDITIONAL FINDINGS: None. IMPRESSION: Elevated velocities in the right popliteal artery suggests underlying stenosis. Elevated velocities at the level of the left superficial femoral artery and popliteal arteries suggests underlying stenosis. Greater sensitivity and specificity can be obtained with pre-and post exercise PVRs with HAYDEE calculations. Also consider dedicated CTA for further anatomical detail. DICTATED BY: NGUYEN GARCIA MD DATE/TIME DICTATED:08/25/16849 EXAMINATION: US RETROPERITONEAL COMPLETE (RENAL) CLINICAL INFORMATION: Renal failure. COMPARISON: None TECHNIQUE: Real-time imaging of the kidneys and bladder. FINDINGS: RIGHT KIDNEY: 12.3 x 6.1 x 5.6 cm (SAG x AP x TRV). Mildly increased cortical echogenicity. Renal cortical thickness is normal. No calculi or focal parenchymal lesions. No hydronephrosis. LEFT KIDNEY: 10.7 x 5.8 x 5.3 cm (SAG x AP x TRV). Increased cortical echogenicity. Mild cortical thinning. No evidence of stones or hydronephrosis. Hypoechoic cortical cyst mid left kidney measuring 1 x 0.7 cm. BLADDER: Well-distended and normal. Only right-sided ureteric jet identified during sonographic evaluation.. IMPRESSION: 1. Increased bilateral renal echogenicity compatible with underlying medical renal disease. 2. No evidence of stones or hydronephrosis. 3. Left renal cyst. DICTATED BY: KEYON SALMON MD DATE/TIME DICTATED:08/23/161433 Pertinent Lab Results: Laboratory Tests 08/26 08/25 0620 0620 Chemistry Sodium (137 - 145 mmol/L) 141 142 Potassium (3.5 - 5.1 mmol/L) 4.7 5.0 Chloride (98 - 107 mmol/L) 109 H 111 H Carbon Dioxide (22 - 30 mmol/L) 23 20 L Anion Gap (5 - 16) 9 10 BUN (9 - 20 mg/dL) 47 H 48 H Creatinine (0.7 - 1.2 mg/dL) 7.1 *H 6.7 *H Estimated GFR (>60 ml/min) 8 L 9 L BUN/Creatinine Ratio (7 - 25 %) 6.6 L 7.2 Phosphorus (2.5 - 4.5 mg/dL) 6.5 H Magnesium (1.6 - 2.3 mg/dL) 1.9 Hematology CBC w Diff NO MAN DIFF REQ NO MAN DIFF REQ WBC (4.8 - 10.8 /CUMM) 6.7 10.2 RBC (4.70 - 6.10 /CUMM) 2.63 L 2.51 L Hgb (14.0 - 18.0 G/DL) 7.5 L 7.0 *L Hct (42 - 52 %) 22.1 L 21.5 L MCV (80.0 - 94.0 FL) 84.2 85.7 MCH (27.0 - 31.0 PG) 28.4 28.0 RDW (11.5 - 14.5 %) 15.8 H 15.6 H Plt Count (130 - 400 /CUMM) 338 293 MPV (7.4 - 10.4 FL) 8.5 9.1 Gran % (42.2 - 75.2 %) 65.1 60.3 Lymphocytes % (20.5 - 51.1 %) 25.4 29.9 Monocytes % (1.7 - 9.3 %) 6.2 6.9 Eosinophils % (0 - 5 %) 2.2 2.1 Basophils % (0.0 - 2.0 %) 1.1 0.8 Absolute Granulocytes (1.4 - 6.5 /CUMM) 4.4 2.3 Absolute Lymphocytes (1.2 - 3.4 /CUMM) 1.7 1.1 L Absolute Monocytes (0.10 - 0.60 /CUMM) 0.4 0.3 Absolute Eosinophils (0.0 - 0.7 /CUMM) 0.1 0.1 Absolute Basophils (0.0 - 0.2 /CUMM) 0.1 0 PUBS MCHC (33.0 - 37.0 G/DL) 33.8 32.7 L 08/24 08/24 0555 0115 Chemistry Sodium (137 - 145 mmol/L) 141 Potassium (3.5 - 5.1 mmol/L) 5.3 H Chloride (98 - 107 mmol/L) 112 H Carbon Dioxide (22 - 30 mmol/L) 20 L Anion Gap (5 - 16) 10 BUN (9 - 20 mg/dL) 45 H 47 H Creatinine (0.7 - 1.2 mg/dL) 6.6 *H 6.5 *H Estimated GFR (>60 ml/min) 9 L 9 L BUN/Creatinine Ratio (7 - 25 %) 6.8 L Phosphorus (2.5 - 4.5 mg/dL) 6.5 H Iron (49 - 181 ug/dL) 22 L TIBC (261 - 462 ug/dL) 288 Ferritin (17.9 - 464 ng/mL) 31.3 Troponin I (<0.11 ng/ml) 0.78 *H Triglycerides (<150 mg/dL) 137 Cholesterol (< 200 MG/DL) 155 LDL Cholesterol, Calc (65 - 129 mg/dL) 98 HDL Cholesterol (40 - 60 mg/dL) 30 L Cholesterol/HDL Ratio (0.00 - 4.88 %) 5 H 25-OH Vitamin D Total (30 - 100 ng/ml) 8.0 L Hematology CBC w Diff NO MAN DIFF REQ WBC (4.8 - 10.8 /CUMM) 5.7 RBC (4.70 - 6.10 /CUMM) 2.58 L Hgb (14.0 - 18.0 G/DL) 7.4 *L Hct (42 - 52 %) 22.1 L MCV (80.0 - 94.0 FL) 85.4 MCH (27.0 - 31.0 PG) 28.8 RDW (11.5 - 14.5 %) 15.5 H Plt Count (130 - 400 /CUMM) 372 MPV (7.4 - 10.4 FL) 8.5 Gran % (42.2 - 75.2 %) 69.6 Lymphocytes % (20.5 - 51.1 %) 23.4 Monocytes % (1.7 - 9.3 %) 4.6 Eosinophils % (0 - 5 %) 1.2 Basophils % (0.0 - 2.0 %) 1.2 Absolute Granulocytes (1.4 - 6.5 /CUMM) 4.0 Absolute Lymphocytes (1.2 - 3.4 /CUMM) 1.3 Absolute Monocytes (0.10 - 0.60 /CUMM) 0.3 Absolute Eosinophils (0.0 - 0.7 /CUMM) 0.1 Absolute Basophils (0.0 - 0.2 /CUMM) 0.1 PUBS MCHC (33.0 - 37.0 G/DL) 33.8 Serology Hepatitis A IgM Ab (NONREACTIVE) NONREACTIVE Hep Bs Antigen (NONREACTIVE) NONREACTIVE Hep B Core IgM Ab Conf (NONREACTIVE) NONREACTIVE Hepatitis C Antibody (NONREACTIVE) NONREACTIVE 08/24 08/24 0014 0014 Immunology Immunoelectrophoresis Pending SHAWN Titer ND Anti-Nuclear Antibody (NEG,1:40) NEG 1:40 IFA ASSAY ANCA Pending Complement C3 Pending Complement C4 Pending Miscellaneous Ref Lab Test Result Pending 08/23 08/23 0109 6125 Hematology CBC w Diff NO MAN DIFF REQ WBC (4.8 - 10.8 /CUMM) 6.6 RBC (4.70 - 6.10 /CUMM) 2.29 L Hgb (14.0 - 18.0 G/DL) 6.4 *L Hct (42 - 52 %) 19.6 *L MCV (80.0 - 94.0 FL) 85.3 MCH (27.0 - 31.0 PG) 28.0 RDW (11.5 - 14.5 %) 16.0 H Plt Count (130 - 400 /CUMM) 391 MPV (7.4 - 10.4 FL) 8.1 Gran % (42.2 - 75.2 %) 74.6 Lymphocytes % (20.5 - 51.1 %) 18.7 L Monocytes % (1.7 - 9.3 %) 5.1 Eosinophils % (0 - 5 %) 0.8 Basophils % (0.0 - 2.0 %) 0.8 Absolute Granulocytes (1.4 - 6.5 /CUMM) 4.9 Absolute Lymphocytes (1.2 - 3.4 /CUMM) 1.2 Absolute Monocytes (0.10 - 0.60 /CUMM) 0.3 Absolute Eosinophils (0.0 - 0.7 /CUMM) 0.1 Absolute Basophils (0.0 - 0.2 /CUMM) 0.1 PUBS MCHC (33.0 - 37.0 G/DL) 32.8 L Urines Urinalysis LIGHT H Urine Color (YEL,AMB,STR) YEL Urine Clarity (CLEAR) CLEAR Urine pH (5.0 - 8.0) 7.0 Ur Specific [place] (1.001 - 1.035) 1.020 Urine Protein (NEG,<30 MG/DL) >=300 H Urine Ketones (NEG) NEG Urine Nitrite (NEG) NEG Urine Bilirubin (NEG) NEG Urine Urobilinogen (0.1 - 1.0 EU/dl) 0.2 Ur Leukocyte Esterase (NEG) NEG Ur Microscopic SEDIMENT EXAMINED Urine RBC (0 - 5 /HPF) 1-3 Urine WBC (0 - 2 /HPF) 3-5 H Urine Mucus (FEW,NONE) RARE Urine Hemoglobin (NEG) SMALL H Urine Glucose (N MG/DL) 100 H 08/23 08/23 08/23 1415 1141 1141 Chemistry Sodium (137 - 145 mmol/L) 143 Potassium (3.5 - 5.1 mmol/L) 5.0 Chloride (98 - 107 mmol/L) 111 H Carbon Dioxide (22 - 30 mmol/L) 21 L Anion Gap (5 - 16) 11 BUN (9 - 20 mg/dL) 51 H Creatinine (0.7 - 1.2 mg/dL) 6.9 *H Estimated GFR (>60 ml/min) 9 L BUN/Creatinine Ratio (7 - 25 %) 7.4 Glucose (65 - 99 mg/dL) 88 Hemoglobin A1c (<5.7) 4.9 Calcium (8.4 - 10.2 mg/dL) 8.5 Phosphorus (2.5 - 4.5 mg/dL) 6.5 H Magnesium (1.6 - 2.3 mg/dL) 2.0 Total Bilirubin (0.2 - 1.3 mg/dL) 0.5 AST (17 - 59 U/L) 18 ALT (21 - 72 U/L) 23 Alkaline Phosphatase (< 127 U/L) 88 Troponin I (<0.11 ng/ml) 1.03 *H Total Protein (6.3 - 8.2 g/dL) 6.7 Albumin (3.5 - 5.0 g/dL) 3.4 L Globulin (1.9 - 4.2 gm/dL) 3.3 Albumin/Globulin Ratio (1.1 - 2.2 %) 1.0 L Hematology CBC w Diff NO MAN DIFF REQ WBC (4.8 - 10.8 /CUMM) 6.7 RBC (4.70 - 6.10 /CUMM) 2.50 L Hgb (14.0 - 18.0 G/DL) 7.0 *L Hct (42 - 52 %) 21.2 L MCV (80.0 - 94.0 FL) 84.5 MCH (27.0 - 31.0 PG) 27.8 RDW (11.5 - 14.5 %) 16.3 H Plt Count (130 - 400 /CUMM) 463 H MPV (7.4 - 10.4 FL) 7.6 Gran % (42.2 - 75.2 %) 73.3 Lymphocytes % (20.5 - 51.1 %) 19.1 L Monocytes % (1.7 - 9.3 %) 5.5 Eosinophils % (0 - 5 %) 1.1 Basophils % (0.0 - 2.0 %) 1.0 Absolute Granulocytes (1.4 - 6.5 /CUMM) 4.9 Absolute Lymphocytes (1.2 - 3.4 /CUMM) 1.3 Absolute Monocytes (0.10 - 0.60 /CUMM) 0.4 Absolute Eosinophils (0.0 - 0.7 /CUMM) 0.1 Absolute Basophils (0.0 - 0.2 /CUMM) 0.1 PUBS MCHC (33.0 - 37.0 G/DL) 32.9 L Urines Ur Random Creatinine (mg/dL) 46.1 Ur Random Sodium (30 - 90 mmol/L) 91 H Ur Random Potassium (mmol/L) 33.7 Fraction Sodium Excret (<1% %) 9.5 H 08/23 UNK Urines Ur Random Creatinine (mg/dL) 50.3 U Random Total Protein (0 - 12 mg/dL) 312.1 H Protein/Creatinin Ratio (< 0.2) 6.20 H Disposition Summary Disposition Principal Diagnosis: Renal dysfunction Additional Diagnosis: Hypertensive urgency Anemia Hyperkalemia Demand ischemia Ankle fracture Peripheral vascular disease Discharge Disposition: home or self care Discharge Instructions General Discharge Information Code Status: Full Code Patient's Diet: Heart healthy Patient's Activity: As tolerated, do not bear weight on the left lower extremity Follow-Up Instructions/Appts: You were seen/treated for: - Hypertensive urgency - Kidney dysfunction - Anemia requiring transfusion - High potassium - Demand ischemia - Ankle fracture - Peripheral vascular disease Special Instructions: - Please follow up with your new PCP, Dr. Power within a week. - Please follow up with nephrology, Dr. Hernandez, for your kidneys. - Please follow up with Dr. Meagan Gayle for your ankle. Please do not take NSAIDs such as ibuprofen or aleve for your pain as it may worsen your kidney. You can continue to take the hydrocodone/acetaminophen as needed for pain. Try to use it sparingly. - Please do not bear weight on your left leg. - Please follow up with cardiology, Dr. Quan. You will need outpatient stress test. - Please follow up with Dr. Peraza (vascular surgery) to further assess peripheral vascular disease. - Please follow up with GI, Dr. Monteiro, for colonoscopy to further evaluate the anemia. - Your prescriptions have been sent to [facility] in [place]. Medications at Discharge Discharge Medications: Start taking the following new medications: Ferrous Gluconate (Ferrous Gluconate) 324 MG (38 MG IRON) TABLET 1 Tablet ORAL TWICE DAILY Qty = 90 No Refills Metoprolol Tartrate (Metoprolol Tartrate) 25 MG TABLET 1 Tablet ORAL TWICE DAILY Qty = 90 No Refills Amlodipine Besylate (Norvasc) 10 MG TABLET 1 Tablet ORAL DAILY Qty = 90 No Refills Furosemide (Lasix) 40 MG TABLET 2 Tablet ORAL DAILY Qty = 120 No Refills Hydralazine HCl (Hydralazine HCl) 25 MG TABLET 1 Tablet ORAL THREE TIMES DAILY Qty = 90 No Refills Comments: GIVEN 08/26/16 @ 0930 Ferrous Gluconate (Ferrous Gluconate) 324 MG (38 MG IRON) TABLET 1 Tablet ORAL TWICE DAILY Qty = 90 No Refills Comments: GIVEN 08/26/16 @ 0930 Metoprolol Tartrate (Metoprolol Tartrate) 25 MG TABLET 1 Tablet ORAL TWICE DAILY Qty = 90 No Refills Amlodipine Besylate (Norvasc) 10 MG TABLET 1 Tablet ORAL DAILY Qty = 90 No Refills Comments: GIVEN 08/26/16 @ 0930 Furosemide (Lasix) 40 MG TABLET 2 Tablet ORAL DAILY Qty = 120 No Refills Copies To: LORENZO PLATA,SHRUTHI Bang; MITALI PLATA,MEAGAN Oh; OMAR PLATA,[facility]; HEMANT PLATA,[facility]; CELSO PLATA,MONIQUE MONTEIRO MD,ESTRELLA
[2016-08-26 08:25] VITALS: BP 170/80
[2016-08-26 09:28] VITALS: BP 164/70
--- NOTE | 2016-08-26 09:30 | PN- Nephrology ---
Assessment/Plan Assessment: 1. Renal failure: likely chronic, stage 5, due to diabetic & HTN nephrosclerosis. Seroligic w/u still incomplete. No current renal replacement indication but @ higher risk VIKRAM w surg --> discussed in detail w pt. 2. HTN: improved Suggestion: OK for discharge from renal perspective w oupt labs & f/u --> given telephone # to make appt Continue current anti HTN & Lasix No NSAIDs, IV contrast, gadolinium w any MR --> discussed w pt Subjective Subjective: No complaints No urmic sx or SOB Discharge plan w outpt f/u including ortho noted Objective Vital Signs and I&Os Vital Signs Date Time Temp Pulse Resp B/P Pulse O2 O2 Flow FiO2 Ox Delivery Rate 08/26 0825 97.7 56 20 170/80 97 Room Air 08/26 0000 60 158/80 08/26 0000 95 Room Air 08/25 2300 98.1 57 18 182/84 98 Room Air 08/25 2117 57 182/84 08/25 2116 57 182/84 08/25 1800 170/74 08/25 1636 98.7 55 18 168/90 98 Room Air 08/25 1148 190/88 Intake & Output 08/26 1600 08/26 0400 08/25 1600 08/25 0400 08/24 1600 08/24 0400 Intake Total 240 400 668 132 7665 300 Output Total 2350 850 1650 300 Balance 240 400 -1510 -370 -500 0 Intake, Blood 350 Product Intake, Oral 240 400 840 480 800 300 Output, Urine 2350 850 1650 300 Patient 160 lb 160 lb Weight Physical Exam General Appearance: well developed/nourished, no apparent distress, awake Head: atraumatic, normal appearance Ears, Nose, Throat: normal ENT inspection Respiratory: normal breath sounds, quiet respiration, lungs clear Cardiovascular: regular rate/rhythm Abdomen: soft, non-tender Extremities: normal inspection (Lleg splinted) Neurologic/Psychiatric: awake, alert, oriented x 3 Current Medications: Current Medications Sig/[place] Start time Last Medication Dose Route Stop Time Status Admin Amlodipine Besylate 10 MG DAILY 08/25 1000 AC 08/25 PO 0756 Docusate Sodium 100 MG BID 08/25 1000 AC 08/25 PO 1148 Ferrous Gluconate 325 MG BID 08/25 1000 AC 08/25 PO 2117 Furosemide 80 MG DAILY 08/24 1110 AC 08/25 PO 0756 Hydralazine HCl 25 MG TID 08/25 1515 AC 08/25 PO 2116 Metoprolol Tartrate 25 MG BID 08/23 2200 AC 08/25 PO 211 Oxycodone HCl 5 MG Q6P PRN 08/23 1715 AC 08/25 PO 1801 Polyethylene Glycol 17 GM DAILY 08/25 1000 AC PO Senna/Docusate Sodium 1 TAB BID PRN 08/25 0945 AC PO Results Pertinent Lab Results: Laboratory Tests 08/26 08/25 0620 0620 Chemistry Sodium (137 - 145 mmol/L) 141 142 Potassium (3.5 - 5.1 mmol/L) 4.7 5.0 Chloride (98 - 107 mmol/L) 109 H 111 H Carbon Dioxide (22 - 30 mmol/L) 23 20 L Anion Gap (5 - 16) 9 10 BUN (9 - 20 mg/dL) 47 H 48 H Creatinine (0.7 - 1.2 mg/dL) 7.1 *H 6.7 *H Estimated GFR (>60 ml/min) 8 L 9 L BUN/Creatinine Ratio (7 - 25 %) 6.6 L 7.2 Phosphorus (2.5 - 4.5 mg/dL) 6.5 H Magnesium (1.6 - 2.3 mg/dL) 1.9 Hematology CBC w Diff NO MAN DIFF REQ NO MAN DIFF REQ WBC (4.8 - 10.8 /CUMM) 6.7 10.2 RBC (4.70 - 6.10 /CUMM) 2.63 L 2.51 L Hgb (14.0 - 18.0 G/DL) 7.5 L 7.0 *L Hct (42 - 52 %) 22.1 L 21.5 L MCV (80.0 - 94.0 FL) 84.2 85.7 MCH (27.0 - 31.0 PG) 28.4 28.0 RDW (11.5 - 14.5 %) 15.8 H 15.6 H Plt Count (130 - 400 /CUMM) 338 293 MPV (7.4 - 10.4 FL) 8.5 9.1 Gran % (42.2 - 75.2 %) 65.1 60.3 Lymphocytes % (20.5 - 51.1 %) 25.4 29.9 Monocytes % (1.7 - 9.3 %) 6.2 6.9 Eosinophils % (0 - 5 %) 2.2 2.1 Basophils % (0.0 - 2.0 %) 1.1 0.8 Absolute Granulocytes (1.4 - 6.5 /CUMM) 4.4 2.3 Absolute Lymphocytes (1.2 - 3.4 /CUMM) 1.7 1.1 L Absolute Monocytes (0.10 - 0.60 /CUMM) 0.4 0.3 Absolute Eosinophils (0.0 - 0.7 /CUMM) 0.1 0.1 Absolute Basophils (0.0 - 0.2 /CUMM) 0.1 0 PUBS MCHC (33.0 - 37.0 G/DL) 33.8 32.7 L 08/24 08/24 0555 0115 Chemistry Sodium (137 - 145 mmol/L) 141 Potassium (3.5 - 5.1 mmol/L) 5.3 H Chloride (98 - 107 mmol/L) 112 H Carbon Dioxide (22 - 30 mmol/L) 20 L Anion Gap (5 - 16) 10 BUN (9 - 20 mg/dL) 45 H 47 H Creatinine (0.7 - 1.2 mg/dL) 6.6 *H 6.5 *H Estimated GFR (>60 ml/min) 9 L 9 L BUN/Creatinine Ratio (7 - 25 %) 6.8 L Phosphorus (2.5 - 4.5 mg/dL) 6.5 H Iron (49 - 181 ug/dL) 22 L TIBC (261 - 462 ug/dL) 288 Ferritin (17.9 - 464 ng/mL) 31.3 Troponin I (<0.11 ng/ml) 0.78 *H Triglycerides (<150 mg/dL) 137 Cholesterol (< 200 MG/DL) 155 LDL Cholesterol, Calc (65 - 129 mg/dL) 98 HDL Cholesterol (40 - 60 mg/dL) 30 L Cholesterol/HDL Ratio (0.00 - 4.88 %) 5 H 25-OH Vitamin D Total (30 - 100 ng/ml) 8.0 L Hematology CBC w Diff NO MAN DIFF REQ WBC (4.8 - 10.8 /CUMM) 5.7 RBC (4.70 - 6.10 /CUMM) 2.58 L Hgb (14.0 - 18.0 G/DL) 7.4 *L Hct (42 - 52 %) 22.1 L MCV (80.0 - 94.0 FL) 85.4 MCH (27.0 - 31.0 PG) 28.8 RDW (11.5 - 14.5 %) 15.5 H Plt Count (130 - 400 /CUMM) 372 MPV (7.4 - 10.4 FL) 8.5 Gran % (42.2 - 75.2 %) 69.6 Lymphocytes % (20.5 - 51.1 %) 23.4 Monocytes % (1.7 - 9.3 %) 4.6 Eosinophils % (0 - 5 %) 1.2 Basophils % (0.0 - 2.0 %) 1.2 Absolute Granulocytes (1.4 - 6.5 /CUMM) 4.0 Absolute Lymphocytes (1.2 - 3.4 /CUMM) 1.3 Absolute Monocytes (0.10 - 0.60 /CUMM) 0.3 Absolute Eosinophils (0.0 - 0.7 /CUMM) 0.1 Absolute Basophils (0.0 - 0.2 /CUMM) 0.1 PUBS MCHC (33.0 - 37.0 G/DL) 33.8 Serology Hepatitis A IgM Ab (NONREACTIVE) NONREACTIVE Hep Bs Antigen (NONREACTIVE) NONREACTIVE Hep B Core IgM Ab Conf (NONREACTIVE) NONREACTIVE Hepatitis C Antibody (NONREACTIVE) NONREACTIVE 08/24 08/24 0014 0014 Immunology Immunoelectrophoresis Pending SHAWN Titer ND Anti-Nuclear Antibody (NEG,1:40) NEG 1:40 IFA ASSAY ANCA Pending Complement C3 Pending Complement C4 Pending Miscellaneous Ref Lab Test Result Pending 08/23 08/23 9288 4020 Hematology CBC w Diff NO MAN DIFF REQ WBC (4.8 - 10.8 /CUMM) 6.6 RBC (4.70 - 6.10 /CUMM) 2.29 L Hgb (14.0 - 18.0 G/DL) 6.4 *L Hct (42 - 52 %) 19.6 *L MCV (80.0 - 94.0 FL) 85.3 MCH (27.0 - 31.0 PG) 28.0 RDW (11.5 - 14.5 %) 16.0 H Plt Count (130 - 400 /CUMM) 391 MPV (7.4 - 10.4 FL) 8.1 Gran % (42.2 - 75.2 %) 74.6 Lymphocytes % (20.5 - 51.1 %) 18.7 L Monocytes % (1.7 - 9.3 %) 5.1 Eosinophils % (0 - 5 %) 0.8 Basophils % (0.0 - 2.0 %) 0.8 Absolute Granulocytes (1.4 - 6.5 /CUMM) 4.9 Absolute Lymphocytes (1.2 - 3.4 /CUMM) 1.2 Absolute Monocytes (0.10 - 0.60 /CUMM) 0.3 Absolute Eosinophils (0.0 - 0.7 /CUMM) 0.1 Absolute Basophils (0.0 - 0.2 /CUMM) 0.1 PUBS MCHC (33.0 - 37.0 G/DL) 32.8 L Urines Urinalysis LIGHT H Urine Color (YEL,AMB,STR) YEL Urine Clarity (CLEAR) CLEAR Urine pH (5.0 - 8.0) 7.0 Ur Specific [place] (1.001 - 1.035) 1.020 Urine Protein (NEG,<30 MG/DL) >=300 H Urine Ketones (NEG) NEG Urine Nitrite (NEG) NEG Urine Bilirubin (NEG) NEG Urine Urobilinogen (0.1 - 1.0 EU/dl) 0.2 Ur Leukocyte Esterase (NEG) NEG Ur Microscopic SEDIMENT EXAMINED Urine RBC (0 - 5 /HPF) 1-3 Urine WBC (0 - 2 /HPF) 3-5 H Urine Mucus (FEW,NONE) RARE Urine Hemoglobin (NEG) SMALL H Urine Glucose (N MG/DL) 100 H 08/23 08/23 08/23 1415 1141 1141 Chemistry Sodium (137 - 145 mmol/L) 143 Potassium (3.5 - 5.1 mmol/L) 5.0 Chloride (98 - 107 mmol/L) 111 H Carbon Dioxide (22 - 30 mmol/L) 21 L Anion Gap (5 - 16) 11 BUN (9 - 20 mg/dL) 51 H Creatinine (0.7 - 1.2 mg/dL) 6.9 *H Estimated GFR (>60 ml/min) 9 L BUN/Creatinine Ratio (7 - 25 %) 7.4 Glucose (65 - 99 mg/dL) 88 Hemoglobin A1c (<5.7) 4.9 Calcium (8.4 - 10.2 mg/dL) 8.5 Phosphorus (2.5 - 4.5 mg/dL) 6.5 H Magnesium (1.6 - 2.3 mg/dL) 2.0 Total Bilirubin (0.2 - 1.3 mg/dL) 0.5 AST (17 - 59 U/L) 18 ALT (21 - 72 U/L) 23 Alkaline Phosphatase (< 127 U/L) 88 Troponin I (<0.11 ng/ml) 1.03 *H Total Protein (6.3 - 8.2 g/dL) 6.7 Albumin (3.5 - 5.0 g/dL) 3.4 L Globulin (1.9 - 4.2 gm/dL) 3.3 Albumin/Globulin Ratio (1.1 - 2.2 %) 1.0 L Hematology CBC w Diff NO MAN DIFF REQ WBC (4.8 - 10.8 /CUMM) 6.7 RBC (4.70 - 6.10 /CUMM) 2.50 L Hgb (14.0 - 18.0 G/DL) 7.0 *L Hct (42 - 52 %) 21.2 L MCV (80.0 - 94.0 FL) 84.5 MCH (27.0 - 31.0 PG) 27.8 RDW (11.5 - 14.5 %) 16.3 H Plt Count (130 - 400 /CUMM) 463 H MPV (7.4 - 10.4 FL) 7.6 Gran % (42.2 - 75.2 %) 73.3 Lymphocytes % (20.5 - 51.1 %) 19.1 L Monocytes % (1.7 - 9.3 %) 5.5 Eosinophils % (0 - 5 %) 1.1 Basophils % (0.0 - 2.0 %) 1.0 Absolute Granulocytes (1.4 - 6.5 /CUMM) 4.9 Absolute Lymphocytes (1.2 - 3.4 /CUMM) 1.3 Absolute Monocytes (0.10 - 0.60 /CUMM) 0.4 Absolute Eosinophils (0.0 - 0.7 /CUMM) 0.1 Absolute Basophils (0.0 - 0.2 /CUMM) 0.1 PUBS MCHC (33.0 - 37.0 G/DL) 32.9 L Urines Ur Random Creatinine (mg/dL) 46.1 Ur Random Sodium (30 - 90 mmol/L) 91 H Ur Random Potassium (mmol/L) 33.7 Fraction Sodium Excret (<1% %) 9.5 H 02 UNK Urines Ur Random Creatinine (mg/dL) 50.3 U Random Total Protein (0 - 12 mg/dL) 312.1 H Protein/Creatinin Ratio (< 0.2) 6.20 H
[2016-08-26] MEDS ORDERED: FERROUS GLUCON324 M2 PO (09:50)
[2016-08-26] MEDS ORDERED: LASIX40 M1 PO (09:50)
[2016-08-26] MEDS ORDERED: NORVASC10 M1 PO (09:50)
[2016-08-26] MEDS ORDERED: METOPROLOL TART25 M1 PO (09:51)
[2016-08-26] MEDS ORDERED: VITAMIN D1000 UNIT PO (09:55)
[2016-08-26 12:57] LABS: HEMATOCRIT 21.5 % (42-52)
== END 2016-08-26 10:41 | DRG 469 ==
LOC: ENRESERVTM → ENRESERVDT → ERH 10:45 → 1NO 15:17 → ERHI 15:17 → ENPENDDIS 15:17 → 1NO 19:20
PROVIDERS: Internal Medicine; Physician Assistant Medical; Radiology Diagnostic Radiology; ADMIT Internal Medicine
PROC: 30233N1 Transfusion of Nonautologous Red Blood Cells into Peripheral Vein, Percutaneous Approach (ICD-10-PCS; principal; 2016-08-24)
DX: N17.9 Acute kidney failure, unspecified (principal); I24.8 Other forms of acute ischemic heart disease; E87.5 Hyperkalemia; D50.9 Iron deficiency anemia, unspecified; F17.210 Nicotine dependence, cigarettes, uncomplicated; I73.9 Peripheral vascular disease, unspecified; I16.0 Hypertensive urgency; S82.892A Other fracture of left lower leg, initial encounter for closed fracture; W00.0XXA Fall on same level due to ice and snow, initial encounter; Y92.9 Unspecified place or not applicable
CPT/HCPCS: 1NSP; 83883; 84133; 84300; 86021; 86160; 36415; 73590-LT; 76775; 81001; 82436; 82570; 86334; 86920; 93005; 93010; 93306; 93925; 93970; 96361; 96374; 96376; 99291; J0360; P9016